=== PATIENT | female | born 1970 | race Caucasian/White ===

== ENCOUNTER 2018-11-15 22:20 | Emergency (ER) | payer MEDICAID ==
[2018-11-15] MEDS ORDERED: Sodium Chloride 0.9% 10 ML Syringe FLUSH PRN ×2 (22:40→23:03)
[2018-11-15 22:43] VITALS: BP 132/83
[2018-11-15] MEDS ORDERED: Ondansetron 4 MG/2 ML SDV IVPUSH ONE (23:02)
[2018-11-15] MEDS ORDERED: Ketorolac 30 MG/ML SDV IVPUSH ONE (23:02)
[2018-11-15] MEDS ORDERED: Sodium Chloride 0.9% 1,000 ML IV ONE (23:02)
--- NOTE | 2018-11-15 23:17 | EDM.PDOC ---
ED HPI GENERAL MEDICAL PROBLEM - General Chief Complaint: Abdominal Pain Stated Complaint: abdominal pain Time Seen by Provider: 11/15/18 22:59 Source of Information: Reports: Patient History Limitations: Reports: No Limitations - History of Present Illness INITIAL COMMENTS - FREE TEXT/NARRATIVE: Patient is a 48-year-old female who presents to the emergency department this evening with a complaint of abdominal pain. Patient states that the abdominal pain has been waxing and waning for 7 days and described as cramping. She feels nauseous and has had 6 or 7 episodes of vomiting in the past 24 hours. She has an extensive history of chronic abdominal pain, ileus, SMA DVT, lumbar surgery and previous narcotic pain medicine addiction. Patient was seen in this ER multiple times with the last episode November 2015. Patient denies fever, chest pain, shortness of breath, blood in vomitus, diarrhea, dysuria, vaginal discharge or bleeding, out of country travel, or family members with similar symptoms. Onset: Gradual Duration: Week(s): Location: Reports: Abdomen Quality: Reports: Ache Severity: Moderate Improves with: Reports: None Worsens with: Reports: None Associated Symptoms: Reports: Nausea/Vomiting. Denies: Chest Pain, Fever/Chills - Related Data Allergies Allergy/AdvReac Type Severity Reaction Status Date / Time metoclopramide HCl Allergy Rash Verified 11/15/18 22:25 [From Reglan] nitroglycerin Allergy Bleeding Verified 11/15/18 22:25 Home Meds: Home Meds Aspirin [Halfprin] 162 mg PO BID 01/01/15 [History] Dicyclomine HCl [Bentyl] 40 mg PO Q6HR PRN 01/01/15 [History] LORazepam [Ativan] 1 mg PO QID PRN 01/01/15 [History] Lidocaine 5% [Lidoderm 5%] 700 mg TOP DAILY PRN 01/01/15 [History] Linaclotide [Linzess] 290 mg PO DAILY 01/01/15 [History] Pantoprazole Sodium [Protonix] 20 mg PO DAILY 01/20/15 [History] Zolpidem [Ambien] 10 mg PO BEDTIME PRN 01/20/15 [History] busPIRone HCl [Buspirone HCl] 15 mg PO TID 01/20/15 [History] Hydrocort/Neomycin/Polymyxin B [Qmkqukfs-Xzvkmkkbl-ZW Otic Susp] 10 ml .XX TID # 1 bottle 11/15/18 [Rx] Past Medical History Cardiovascular History: Reports: Blood Clots/VTE/DVT, [place] Gastrointestinal History: Reports: Helicobacter Pylori, Other (See Below) Other Gastrointestinal History: chronic abdominal pain, cdiff Genitourinary History: Reports: Pyelonephritis Other Genitourinary History: current UTI Psychiatric History: Reports: Addiction, Anxiety - Infectious Disease History Infectious Disease History: Reports: C-Difficile - Past Surgical History GI Surgical History: Reports: Colonoscopy, Hernia, Abdominal Female Surgical History: Reports: Section ED ROS GENERAL - Review of Systems Review Of Systems: ROS reveals no pertinent complaints other than HPI. Constitutional: Reports: No Symptoms HEENT: Reports: No Symptoms Respiratory: Reports: No Symptoms Cardiovascular: Reports: No Symptoms Endocrine: Reports: No Symptoms GI/Abdominal: Reports: Abdominal Pain, Nausea, Vomiting : Reports: No Symptoms Musculoskeletal: Reports: No Symptoms Skin: Reports: No Symptoms Neurological: Reports: No Symptoms Psychiatric: Reports: No Symptoms Hematologic/Lymphatic: Reports: No Symptoms Immunologic: Reports: No Symptoms ED EXAM, GI/ABD - Physical Exam Exam: See Below Exam Limited By: No Limitations General Appearance: Alert, WD/WN, No Apparent Distress Ears: Normal External Exam, Other (Right canal edematous and TM not visualized. Left canal and TM without edema or erythema.) Throat/Mouth: Normal Inspection, Normal Oropharynx, No Airway Compromise Neck: Normal Inspection Respiratory/Chest: No Respiratory Distress, Lungs Clear, Normal Breath Sounds, No Accessory Muscle Use, Chest Non-Tender Cardiovascular: Regular Rate, Rhythm, No Murmur GI/Abdominal Exam: Normal Bowel Sounds, Soft, No Organomegaly, No Distention, No Abnormal Bruit, No Mass, Tender (Right lower quadrant). No: Distended, Guarding, Rigid, Rebound Back Exam: Normal Inspection. No: CVA Tenderness (L), CVA Tenderness (R) Extremities: Normal Inspection, No Pedal Edema Neurological: Alert, Oriented, Normal Cognition Psychiatric: Normal Affect, Normal Mood Skin Exam: Warm, Dry, Intact, Normal Color, No Rash Course - Vital Signs Last Recorded V/S: Last Vital Signs Temp 98.1 F 11/15/18 22:30 Pulse 91 11/15/18 22:30 Resp 20 11/15/18 22:30 BP 132/83 11/15/18 22:30 Pulse Ox 97 11/15/18 22:30 - Orders/Labs/Meds Orders: Active Orders 24 hr Category Date Time Status Peripheral IV Care [RC] . DIRECTED Care 11/15/18 23:03 Ordered Abdomen Pelvis w Cont [CT] Stat Exams 11/15/18 22:39 Ordered Sodium Chloride 0.9% [Normal Saline] 50 ml Med 11/15/18 23:45 Active IV ASDIRECTED Sodium Chloride 0.9% [Saline Flush] Med 11/15/18 22:40 Active 10 ml FLUSH Q8HR PRN Sodium Chloride 0.9% [Saline Flush] Med 11/15/18 23:03 Ordered 10 ml FLUSH Q8HR PRN Peripheral IV Insertion Adult [OM.PC] Routine Oth 11/15/18 23:03 Ordered Saline Lock Insert [OM.PC] Routine Oth 11/15/18 22:40 Ordered Medication Orders Sodium Chloride (Normal Saline) 50 mls @ 200 mls/min IV ASDIRECTED AKOSUA Last Admin: 11/16/18 00:04 Dose: 200 mls/min Sodium Chloride (Saline Flush) 10 ml FLUSH Q8HR PRN PRN Reason: keep vein open Sodium Chloride (Saline Flush) 10 ml FLUSH Q8HR PRN PRN Reason: keep vein open Labs: Laboratory Tests 11/15/18 11/15/18 11/15/18 Range/Units 22:50 22:50 22:50 WBC 8.92 (5.00-10.00) 10^3/uL RBC 4.58 (3.80-5.50) 10^6/uL Hgb 14.7 (12.0-16.0) g/dL Hct 41.2 (37.0-47.0) % MCV 90.0 D (82.0-92.0) fL MCH 32.1 H (27.0-31.0) pg MCHC 35.7 (32.0-36.0) g/dL RDW 12.4 (11.5-14.5) % Plt Count 248 (150-400) 10^3/uL MPV 10.3 (7.4-10.4) fL Immature Gran % (Auto) 0.0 (0.0-5.0) % Neut % (Auto) 58.3 (50.0-70.0) % Lymph % (Auto) 30.8 (20.0-40.0) % [place] % (Auto) 9.0 H (2.0-8.0) % Eos % (Auto) 1.1 (1.0-3.0) % Baso % (Auto) 0.8 (0.0-1.0) % Immature Gran # (Auto) 0.00 (0.00-0.50) 10^3/uL Neut # (Auto) 5.20 (2.50-7.00) 10^3/uL Lymph # (Auto) 2.75 (1.00-4.00) 10^3/uL [place] # (Auto) 0.80 (0.10-0.80) 10^3/uL Eos # (Auto) 0.10 (0.10-0.30) 10^3/uL Baso # (Auto) 0.07 (0.00-0.10) 10^3/uL Sodium 142 (136-145) mmol/L Potassium 3.2 L (3.3-5.3) mmol/L Chloride 105 (98-115) mmol/L Carbon Dioxide 24.0 (21.0-32.0) mmol/L Anion Gap 16.2 H (5-15) mmol/L BUN 17 (6-25) mg/dL Creatinine 1.03 (0.51-1.17) mg/dL Est Cr Clr Drug Dosing 63.54 mL/min Estimated GFR (MDRD) 57 mL/min Glucose 100 H (75 - 99) mg/dL Calcium 9.3 (8.7-10.3) mg/dL Total Bilirubin 0.3 (0.2-1.0) mg/dL AST 23 (15-37) U/L ALT 24 (12-78) U/L Alkaline Phosphatase 69 (46-116) IU/L Total Protein 7.5 (6.4-8.2) g/dL Albumin 3.99 (3.00-4.80) g/dL Lipase 129 (73-393) U/L Specimen Type Urinvoid Urine Color Yellow (YELLOW) Urine Appearance Clear (CLEAR) Urine pH 5.5 (5.0-9.0) Ur Specific [place] >= 1.030 (1.005-1.030) Urine Protein 30 H (NEGATIVE) mg/dL Urine Glucose (UA) Negative (NEGATIVE) mg/dL Urine Ketones 15 H (NEGATIVE) mg/dL Urine Occult Blood Negative (NEGATIVE) Urine Nitrite Negative (NEGATIVE) Urine Bilirubin Small H (NEGATIVE) Urine Urobilinogen 0.2 (0.2-1.0) E.U./dL Ur Leukocyte Esterase Negative (NEGATIVE) Urine RBC Not seen (0-5) /HPF Urine WBC 0-5 (0-5) /HPF Ur Epithelial Cells Occasional /LPF Other Crystals Occasional /HPF Urine Bacteria Few (NONE TO FEW) /HPF Urine Mucus Many H (NEGATIVE) /LPF Meds: Medications Generic Name Dose Route Start Last Admin Trade Name Freq PRN Reason Stop Dose Admin Sodium Chloride 50 mls @ 200 mls/min 11/15/18 23:45 11/16/18 00:04 Normal Saline IV 200 mls/min ASDIRECTED AKOSUA Administration Sodium Chloride 10 ml 11/15/18 22:40 Saline Flush FLUSH Q8HR PRN keep vein open Sodium Chloride 10 ml 11/15/18 23:03 Saline Flush FLUSH Q8HR PRN keep vein open Discontinued Medications Generic Name Dose Route Start Last Admin Trade Name Freq PRN Reason Stop Dose Admin Sodium Chloride 1,000 mls @ 999 mls/hr 11/15/18 23:02 11/15/18 23:05 Normal Saline IV 11/16/18 00:02 999 mls/hr .BOLUS ONE Administration Iopamidol 100 ml 11/15/18 23:33 11/16/18 00:04 Isovue-300 (61%) IVPUSH 11/15/18 23:34 75 ml ONETIME ONE Administration Ketorolac Tromethamine 30 mg 11/15/18 23:02 11/15/18 23:26 Toradol IVPUSH 11/15/18 23:03 30 mg ONETIME ONE Administration Ondansetron HCl 4 mg 11/15/18 23:02 11/15/18 23:22 Zofran IVPUSH 11/15/18 23:03 4 mg ONETIME ONE Administration - Radiology Interpretation Free Text/Narrative:: CT abdomen and pelvis with IV contrast shows no acute pathology. - Re-Assessments/Exams Free Text/Narrative Re-Assessment/Exam: 11/16/18 00:45 Patient afebrile, vital signs stable, discomfort relieved. Patient will follow- up with PCP. Prescription for Cortisporin otic given. Departure - Departure Time of Disposition: 00:46 Disposition: Home, Self-Care 01 Condition: Good Clinical Impression: Chronic abdominal pain Otitis externa Qualifiers: Otitis externa type: unspecified type Chronicity: acute Laterality: right Qualified Code(s): H60.501 - Unspecified acute noninfective otitis externa, right ear Abdominal pain Qualifiers: Abdominal location: generalized Qualified Code(s): R10.84 - Generalized abdominal pain - Discharge Information Prescriptions: Hydrocort/Neomycin/Polymyxin B [Pdqlngfn-Ftqupwedk-IS Otic Susp] 10 ml .XX TID # 1 bottle Instructions: Abdominal Pain, Adult, [id number], Nausea and Vomiting, Adult, [id number], Otitis Externa, [id number] Referrals: Otis Zhou, DRESS OPERATOR [Nurse Practitioner] - Forms: ED Department Discharge Additional Instructions: Follow up at [facility] in 2-3 days. Return to emergency department sooner if symptoms continue or worsen. Take medication as prescribed. - My Orders Last 24 Hours: My Active Orders 11/15/18 22:39 Abdomen Pelvis w Cont [CT] Stat 11/15/18 22:40 Sodium Chloride 0.9% [Saline Flush] 10 ml FLUSH Q8HR PRN Saline Lock Insert [OM.PC] Routine 11/15/18 23:03 Peripheral IV Care [RC] . DIRECTED Sodium Chloride 0.9% [Saline Flush] 10 ml FLUSH Q8HR PRN Peripheral IV Insertion Adult [OM.PC] Routine 11/15/18 23:45 Sodium Chloride 0.9% [Normal Saline] 50 ml IV ASDIRECTED - Assessment/Plan Last 24 Hours: My Active Orders 11/15/18 22:39 Abdomen Pelvis w Cont [CT] Stat 11/15/18 22:40 Sodium Chloride 0.9% [Saline Flush] 10 ml FLUSH Q8HR PRN Saline Lock Insert [OM.PC] Routine 11/15/18 23:03 Peripheral IV Care [RC] . DIRECTED Sodium Chloride 0.9% [Saline Flush] 10 ml FLUSH Q8HR PRN Peripheral IV Insertion Adult [OM.PC] Routine 07/01/19 23:45 Sodium Chloride 0.9% [Normal Saline] 50 ml IV ASDIRECTED Assessment:: Abdominal pain, otitis externa Plan: Follow-up with PCP
[2018-11-15 23:30] LABS: ANION GAP 16.2 mmol/L (5-15)
[2018-11-15] MEDS ORDERED: Iopamidol 612 MG/ML 100 ML Bottle IVPUSH ONE (23:33)
[2018-11-15] MEDS ORDERED: Sodium Chloride 0.9% 50 ML IV SCH (23:45)
--- NOTE | 2018-11-16 08:07 | CT ---
[id number] CT/CT Abdomen Pelvis W IV EXAM: CT Abdomen Pelvis W IV CLINICAL DATA: ABDOMINAL PAIN COMPARISON: CORRELATION IS MADE WITH THE EXAM OF 2014. FINDINGS: The gallbladder is moderately distended. The appendix appears normal. The uterus and ovaries appear involuted. There are atheromatous calcifications. There are surgical changes of the lumbar spine. The liver and spleen, adrenals, aorta, kidneys, and pancreas otherwise are unremarkable. There is no free air or free fluid. There is no bowel obstruction. The pelvis shows no mass or adenopathy. IMPRESSION: MILD GALLBLADDER DISTENTION. NO THICKENING OF GALLBLADDER WALL. NO OTHER ABNORMALITY. Baljinder Frost MD 11/16/18 0803 Thank you for allowing us to participate in the care of your patient.
== END 2018-11-16 01:00 | disposition home or self-care (01) ==
LOC: KA.ED 22:20
DX: R10.84 Generalized abdominal pain (principal); H60.501 Unspecified acute noninfective otitis externa, right ear; F41.9 Anxiety disorder, unspecified; Z79.82 Long term (current) use of aspirin; Z79.899 Other long term (current) drug therapy; Z88.8 Allergy status to other drugs, medicaments and biological substances
CPT/HCPCS: 36415; 74177; 80053; 81001; 83690; 85025; 96361; 96374; 96375; 99283; 99284-25; J1885; J2405; J7030; J7050; Q9967

== ENCOUNTER 2018-11-27 21:20 | Emergency (ER) | payer MEDICAID, SELFPAY ==
[2018-11-27 21:35] VITALS: BP 132/90; PULSE 84
[2018-11-27] MEDS ORDERED: Amoxicillin/Clavulanate K 875-125 MG Tab PO ONE (22:09)
--- NOTE | 2018-11-27 22:26 | EDM.PDOC ---
ED HPI GENERAL MEDICAL PROBLEM - General Chief Complaint: ENT Problem Stated Complaint: R ear pain Time Seen by Provider: 11/27/18 21:58 Source of Information: Reports: Patient History Limitations: Reports: No Limitations - History of Present Illness INITIAL COMMENTS - FREE TEXT/NARRATIVE: Patient presents with right ear pain. This has been present for two weeks and worsening the last couple days. She was in ER when it started, was diagnosed with "swimmers ear" and was given otic Abx drops which she has been taking. It seemed to help for a few days but now definitely getting worse. She hasn't had a measured fever but she did have chills yesterday. - Related Data Allergies Allergy/AdvReac Type Severity Reaction Status Date / Time Benzodiazepines Allergy Agitation Verified 11/27/18 21:49 metoclopramide HCl Allergy Rash Verified 11/27/18 21:49 [From Reglan] nitroglycerin Allergy Bleeding Verified 11/27/18 21:49 Home Meds: Home Meds Aspirin [Halfprin] 162 mg PO BID 01/01/15 [History] cloNIDine HCl [Catapres] 0.2 mg PO BID 11/27/18 [History] Past Medical History HEENT History: Reports: Other (See Below) Other HEENT History: Right ear infection which started treatment approx 2 weeks ago. 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 Dermatologic History: Reports: Eczema, Psoriasis, Other (See Below) Other Dermatologic History: States chronic psoriasis in bilat ears. Right more then left. - Infectious Disease History Infectious Disease History: Reports: C-Difficile - Past Surgical History HEENT Surgical History: Reports: Tonsillectomy GI Surgical History: Reports: Colonoscopy, Hernia, Abdominal Female Surgical History: Reports: Section Social & Family History - Tobacco Use Smoking Status *Q: Current Every Day Smoker Years of Tobacco use: 30 Packs/Tins Daily: 1 ED ROS ENT - Review of Systems Review Of Systems: See Below Constitutional: Reports: Chills. Denies: Fever, Malaise HEENT: Reports: Ear Pain. Denies: Eye Discharge, Throat Pain Respiratory: Denies: Shortness of Breath, Cough Cardiovascular: Denies: Chest Pain, Lightheadedness, Syncope Endocrine: Reports: No Symptoms GI/Abdominal: Denies: Abdominal Pain, Constipation, Diarrhea, Vomiting : Reports: No Symptoms Musculoskeletal: Reports: No Symptoms Skin: Reports: No Symptoms Neurological: Reports: No Symptoms Psychiatric: Reports: No Symptoms ED EXAM, ENT - Physical Exam Exam: See Below Exam Limited By: No Limitations General Appearance: Alert, WD/WN, No Apparent Distress Eye Exam: Bilateral Eye: EOMI, Normal Inspection, PERRL Ears: Auricular Erythema (right), Auricular Tenderness (and pre-auricular swelling and tenderness), Canal Swelling, Other (left ear all normal; right ear canal 75% narrowed from swelling, TM not visualized). No: Mastoid Swelling, Mastoid Tenderness, Canal Blood, Canal Discharge Nose: Normal Inspection, No Blood Mouth/Throat: Normal Inspection, Normal Gums, Normal Lips, Normal Oropharynx Head: Atraumatic, Normocephalic Neck: Tender Lateral (right lateral below ear) Respiratory/Chest: No Respiratory Distress, Lungs Clear, Normal Breath Sounds Cardiovascular: Regular Rate, Rhythm, No Murmur Neurological: Alert, Oriented, Normal Cognition, No Motor/Sensory Deficits Psychiatric: Normal Affect, Normal Mood Skin: Warm, Dry, Intact, Normal Color, No Rash Course - Vital Signs Last Recorded V/S: Last Vital Signs Temp 98.5 F 11/27/18 21:33 Pulse 84 11/27/18 21:33 Resp 18 11/27/18 21:33 BP 132/90 11/27/18 21:33 Pulse Ox 97 11/27/18 21:33 - Orders/Labs/Meds Meds: Medications Discontinued Medications Generic Name Dose Route Start Last Admin Trade Name Britany PRN Reason Stop Dose Admin Amoxicillin/Clavulanate Potassium 4 tab 11/27/18 22:09 Augmentin 875 Mg/125 Mg PO 11/27/18 22:10 ONETIME ONE - Re-Assessments/Exams Free Text/Narrative Re-Assessment/Exam: 11/27/18 22:36 Discussed findings and recommendations. Will continue the otic drops and start Augmentin. Will followup with PCP when she gets back to [place] in a few days. Patient discharged to home in stable condition. Departure - Departure Time of Disposition: 22:11 Disposition: Home, Self-Care 01 Condition: Good Clinical Impression: Cellulitis of right ear canal - Discharge Information Instructions: Cellulitis, Adult, [id number] Additional Instructions: 1. Drink 8 cups of water daily. 2. Take the Augmentin as directed. 3. You can take Diflucan if you get a yeast infection. 4. Follow up with your PCP if this doesn't completely resolve with treatment. 5. Recheck sooner with PCP or ER if worsening.
== END 2018-11-27 22:15 | disposition home or self-care (01) ==
LOC: KA.ED 21:20
DX: H60.11 Cellulitis of right external ear (principal); F17.210 Nicotine dependence, cigarettes, uncomplicated; Z79.82 Long term (current) use of aspirin; Z79.899 Other long term (current) drug therapy; Z88.8 Allergy status to other drugs, medicaments and biological substances
CPT/HCPCS: 99282; 99283; A9270

== ENCOUNTER 2019-01-26 13:03 | Emergency (ER) | payer MEDICAID ==
[2019-01-26 13:16] VITALS: PULSE 104
[2019-01-26] MEDS: Sodium Chloride 0.9% 10 ML Syringe FLUSH PRN (13:25)
[2019-01-26] MEDS: Sodium Chloride 0.9% 1,000 ML IV ONE (13:45)
--- NOTE | 2019-01-26 13:47 | EDM.PDOC ---
ED HPI GENERAL MEDICAL PROBLEM - General Chief Complaint: General Stated Complaint: INTESTINE ISSUES Time Seen by Provider: 01/26/19 13:39 Source of Information: Reports: Patient History Limitations: Reports: No Limitations - History of Present Illness INITIAL COMMENTS - FREE TEXT/NARRATIVE: Patient is a 48-year-old female who presents to the emergency department this afternoon with a complaint of abdominal pain and vomiting. Patient states that the abdominal pain has been waxing and waning for 7 days and described as cramping. She feels nauseous and has a few episodes of vomiting in the past 24 hours. She does have extensive history of chronic abdominal pain and narcotic pain medicine addiction and has been seen previously here in the emergency department. She states that she was seen recently in [place] and treated for UTI with cephalexin. Patient denies fever, chest pain, shortness of breath, blood in vomitus or stool, dysuria, vaginal discharge, out of country travel, or others with similar symptoms Onset: Gradual Duration: Week(s): Location: Reports: Abdomen Quality: Reports: Ache Severity: Mild Improves with: Reports: None Worsens with: Reports: None Context: Denies: Trauma Associated Symptoms: Reports: Nausea/Vomiting. Denies: Chest Pain, Cough, Diaphoresis, Fever/Chills, Shortness of Breath Abdomen Pain Score (Numeric/FACES): 10 - Related Data Allergies Allergy/AdvReac Type Severity Reaction Status Date / Time Benzodiazepines Allergy Agitation Verified 01/26/19 13:19 haloperidol [From Haldol] Allergy Syncope Verified 01/26/19 13:19 metoclopramide HCl Allergy Rash Verified 01/26/19 13:19 [From Reglan] nitroglycerin Allergy Bleeding Verified 01/26/19 13:19 Home Meds: Home Meds cloNIDine HCl [Catapres] 0.2 mg PO BID 11/27/18 [History] Aspirin 162 mg PO BID 01/26/19 [History] Past Medical History HEENT History: Reports: Other (See Below) Other HEENT History: Right ear infection which started treatment approx 2 weeks ago. 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 Dermatologic History: Reports: Eczema, Psoriasis, Other (See Below) Other Dermatologic History: States chronic psoriasis in bilat ears. Right more then left. - Infectious Disease History Infectious Disease History: Reports: C-Difficile - Past Surgical History HEENT Surgical History: Reports: Tonsillectomy GI Surgical History: Reports: Colonoscopy, Hernia, Abdominal Female Surgical History: Reports: Section Social & Family History - Tobacco Use Smoking Status *Q: Former Smoker Used Tobacco, but Quit: Yes Month/Year Tobacco Last Used: quit 4 months ago Second Hand Smoke Exposure: No - Caffeine Use Caffeine Use: Reports: Coffee - Recreational Drug Use Recreational Drug Use: Yes Recreational Drug Type: Reports: Marijuana/Hashish ED ROS GENERAL - Review of Systems Review Of Systems: ROS reveals no pertinent complaints other than HPI. Constitutional: Reports: No Symptoms HEENT: Reports: No Symptoms Respiratory: Reports: No Symptoms Cardiovascular: Reports: No Symptoms Endocrine: Reports: No Symptoms GI/Abdominal: Reports: Abdominal Pain, Nausea, Vomiting : Reports: No Symptoms Musculoskeletal: Reports: No Symptoms Skin: Reports: No Symptoms Neurological: Reports: No Symptoms Psychiatric: Reports: No Symptoms Hematologic/Lymphatic: Reports: No Symptoms Immunologic: Reports: No Symptoms ED EXAM, GENERAL - Physical Exam Exam: See Below Exam Limited By: No Limitations General Appearance: Alert, WD/WN, No Apparent Distress Nose: Normal Inspection Throat/Mouth: Normal Inspection, Normal Oropharynx, No Airway Compromise Head: Atraumatic, Normocephalic Neck: Normal Inspection Respiratory/Chest: No Respiratory Distress, Lungs Clear, Normal Breath Sounds, No Accessory Muscle Use, Chest Non-Tender Cardiovascular: Regular Rate, Rhythm, No Murmur GI/Abdominal: Normal Bowel Sounds, Soft, No Organomegaly, No Distention, No Abnormal Bruit, No Mass, Tender (Suprapubic) Back Exam: Normal Inspection. No: CVA Tenderness (L), CVA Tenderness (R) Extremities: Normal Inspection, No Pedal Edema Neurological: Alert, Oriented, Normal Cognition Psychiatric: Normal Affect, Normal Mood Skin Exam: Warm, Dry, Intact, Normal Color, No Rash Lymphatic: No Adenopathy Course - Vital Signs Last Recorded V/S: Last Vital Signs Temp 96.9 F 01/26/19 13:11 Pulse 104 H 01/26/19 13:11 Resp 20 01/26/19 13:11 BP 155/79 H 01/26/19 14:20 Pulse Ox 96 01/26/19 13:11 - Orders/Labs/Meds Orders: Active Orders 24 hr Category Date Time Status Peripheral IV Care [RC] . DIRECTED Care 01/26/19 13:40 Ordered Sodium Chloride 0.9% @ 999 MLS/HR (1000ml) Med 01/26/19 13:40 Ordered Sodium Chloride 0.9% [Normal Saline] 1,000 ml IV .BOLUS Sodium Chloride 0.9% [Saline Flush] Med 01/26/19 13:40 Ordered 10 ml FLUSH Q8HR PRN Peripheral IV Insertion Adult [OM.PC] Routine Oth 01/26/19 13:40 Ordered Medication Orders Sodium Chloride (Normal Saline) 1,000 mls @ 999 mls/hr IV .BOLUS ONE Stop: 01/26/19 14:40 Last Admin: 01/26/19 13:45 Dose: 999 mls/hr Sodium Chloride (Saline Flush) 10 ml FLUSH Q8HR PRN PRN Reason: keep vein open Last Admin: 01/26/19 13:25 Dose: 10 ml Labs: Laboratory Tests 01/26/19 01/26/19 01/26/19 Range/Units 13:30 13:30 13:55 WBC 9.57 (5.00-10.00) 10^3/uL RBC 4.37 (3.80-5.50) 10^6/uL Hgb 14.1 (12.0-16.0) g/dL Hct 40.0 (37.0-47.0) % MCV 91.5 (82.0-92.0) fL MCH 32.3 H (27.0-31.0) pg MCHC 35.3 (32.0-36.0) g/dL RDW 13.7 (11.5-14.5) % Plt Count 391 D (150-400) 10^3/uL MPV 9.6 (7.4-10.4) fL Immature Gran % (Auto) 0.1 (0.0-5.0) % Neut % (Auto) 62.9 (50.0-70.0) % Lymph % (Auto) 25.2 (20.0-40.0) % [place] % (Auto) 9.5 H (2.0-8.0) % Eos % (Auto) 1.5 (1.0-3.0) % Baso % (Auto) 0.8 (0.0-1.0) % Immature Gran # (Auto) 0.01 (0.00-0.50) 10^3/uL Neut # (Auto) 6.02 (2.50-7.00) 10^3/uL Lymph # (Auto) 2.41 (1.00-4.00) 10^3/uL [place] # (Auto) 0.91 H (0.10-0.80) 10^3/uL Eos # (Auto) 0.14 (0.10-0.30) 10^3/uL Baso # (Auto) 0.08 (0.00-0.10) 10^3/uL Sodium 140 (136-145) mmol/L Potassium 3.7 (3.3-5.3) mmol/L Chloride 100 (98-115) mmol/L Carbon Dioxide 27.4 (21.0-32.0) mmol/L Anion Gap 16.3 H (5-15) mmol/L BUN 12 (6-25) mg/dL Creatinine 0.91 (0.51-1.17) mg/dL Est Cr Clr Drug Dosing 71.92 mL/min Estimated GFR (MDRD) > 60 mL/min Glucose 116 H (75 - 99) mg/dL Calcium 9.5 (8.7-10.3) mg/dL Total Bilirubin 0.4 (0.2-1.0) mg/dL AST 24 (15-37) U/L ALT 39 (12-78) U/L Alkaline Phosphatase 67 (46-116) IU/L Total Protein 7.1 (6.4-8.2) g/dL Albumin 3.92 (3.00-4.80) g/dL Lipase 117 (73-393) U/L Specimen Type . Urine Color Yellow (YELLOW) Urine Appearance Clear (CLEAR) Urine pH 5.5 (5.0-9.0) Ur Specific [place] >= 1.030 (1.005-1.030) Urine Protein 100 H (NEGATIVE) mg/dL Urine Glucose (UA) Negative (NEGATIVE) mg/dL Urine Ketones Negative (NEGATIVE) mg/dL Urine Occult Blood Negative (NEGATIVE) Urine Nitrite Negative (NEGATIVE) Urine Bilirubin Small H (NEGATIVE) Urine Urobilinogen 0.2 (0.2-1.0) E.U./dL Ur Leukocyte Esterase Negative (NEGATIVE) Urine RBC 0-5 (0-5) /HPF Urine WBC 5-10 H (0-5) /HPF Ur Epithelial Cells Many H /LPF Urine Bacteria Occasional (NONE TO FEW) /HPF Urine Mucus Many H (NEGATIVE) /LPF Meds: Medications Generic Name Dose Route Start Last Admin Trade Name Freq PRN Reason Stop Dose Admin Sodium Chloride 1,000 mls @ 999 mls/hr 01/26/19 13:40 01/26/19 13:45 Normal Saline IV 01/26/19 14:40 999 mls/hr .BOLUS ONE Administration Sodium Chloride 10 ml 01/26/19 13:40 01/26/19 13:25 Saline Flush FLUSH 10 ml Q8HR PRN Administration keep vein open Discontinued Medications Generic Name Dose Route Start Last Admin Trade Name Freq PRN Reason Stop Dose Admin Ketorolac Tromethamine 30 mg 01/26/19 14:05 01/26/19 14:10 Toradol IVPUSH 01/26/19 14:06 30 mg ONETIME ONE Administration - Re-Assessments/Exams Free Text/Narrative Re-Assessment/Exam: 01/26/19 14:31 Patient afebrile, vital signs stable, appears nontoxic, requesting narcotics. Patient will follow-up with PCP Departure - Departure Time of Disposition: 14:32 Disposition: Home, Self-Care 01 Condition: Good Clinical Impression: Chronic pain syndrome, Chronic generalized abdominal pain, Drug-seeking behavior - Discharge Information Instructions: Abdominal Pain, Adult, [id number], Chronic Pain, Adult Referrals: Jayy Dickerson MD [Primary Care Provider] - Forms: ED Department Discharge Additional Instructions: Follow-up at [facility] in 1-2 days. Return to emergency department sooner if symptoms continue or worsen. - My Orders Last 24 Hours: My Active Orders 01/26/19 13:40 Peripheral IV Care [RC] . DIRECTED Sodium Chloride 0.9% @ 999 MLS/HR (1000ml) Sodium Chloride 0.9% [Normal Saline] 1,000 ml IV .BOLUS Sodium Chloride 0.9% [Saline Flush] 10 ml FLUSH Q8HR PRN Peripheral IV Insertion Adult [OM.PC] Routine - Assessment/Plan Last 24 Hours: My Active Orders 01/26/19 13:40 Peripheral IV Care [RC] . DIRECTED Sodium Chloride 0.9% @ 999 MLS/HR (1000ml) Sodium Chloride 0.9% [Normal Saline] 1,000 ml IV .BOLUS Sodium Chloride 0.9% [Saline Flush] 10 ml FLUSH Q8HR PRN Peripheral IV Insertion Adult [OM.PC] Routine Assessment:: Chronic abdominal pain Plan: Follow-up with PCP
[2019-01-26 13:56] LABS: ANION GAP 16.3 mmol/L (5-15); CHLORIDE,CL 100 mmol/L (98-115); SODIUM,NA 140 mmol/L (136-145)
[2019-01-26] MEDS: Ketorolac 30 MG/ML SDV IVPUSH ONE (14:10)
[2019-01-26 14:20] VITALS: BP 155/79
== END 2019-01-26 14:40 | disposition home or self-care (01) ==
LOC: KA.ED 13:03
DX: R10.84 Generalized abdominal pain (principal); G89.29 Other chronic pain; I25.2 Old myocardial infarction; Z76.5 Malingerer [conscious simulation]; Z79.82 Long term (current) use of aspirin; Z86.718 Personal history of other venous thrombosis and embolism; Z87.891 Personal history of nicotine dependence; Z88.8 Allergy status to other drugs, medicaments and biological substances
CPT/HCPCS: 80053; 81001; 83690; 85025; 96361; 96374; 99283; 99284-25; J1885; J7030

== ENCOUNTER 2019-08-29 22:40 | Emergency (ER) | payer MEDICAID ==
[2019-08-29] MEDS ORDERED: Ketorolac 30 MG/ML SDV IVPUSH ONE (23:09)
[2019-08-29] MEDS ORDERED: Sodium Chloride 0.9% 10 ML Syringe FLUSH PRN (23:09)
--- NOTE | 2019-08-29 23:18 | EDM.PDOC ---
ED HPI GENERAL MEDICAL PROBLEM - General Chief Complaint: Respiratory Problem Stated Complaint: left lung pain Time Seen by Provider: 08/29/19 23:07 Source of Information: Reports: Patient History Limitations: Reports: No Limitations - History of Present Illness INITIAL COMMENTS - FREE TEXT/NARRATIVE: Patient is a 49-year-old female who presents to the emergency department this evening via private vehicle for complaint of left-sided chest pain and shortness of breath. Patient states discomfort in the left axilla began 7 days ago. Patient states the symptoms have not resolved. Became concerned and decided to present to the ER. Patient states 60 days ago, mid June she was diagnosed with covid-19. This occurred in [place], [place]. Patient states took 5 days for the results, she had mild symptoms initially and symptoms resolved spontaneously. Patient was never on any medication. Patient does have underlying asthma. Patient believes that she acquired the virus from a 5G radial [place]. Patient states that she's been in the local area for the past 13 days. Patient denies cough, fever, nausea, vomiting, diarrhea, other family members with similar symptoms, headache, or any trauma to that area. Patient adamantly refused procedure to recheck for Covid 19 or influenza. Patient states she's not going through that again. Onset: Gradual Duration: Week(s): Location: Reports: Chest Quality: Reports: Ache, Stabbing Severity: Moderate Improves with: Reports: None Worsens with: Reports: Breathing Associated Symptoms: Reports: Shortness of Breath. Denies: Cough, cough w sputum, Diaphoresis, Fever/Chills, Nausea/Vomiting - Related Data Allergies Allergy/AdvReac Type Severity Reaction Status Date / Time Benzodiazepines Allergy Agitation Verified 01/26/19 13:19 haloperidol [From Haldol] Allergy Syncope Verified 01/26/19 13:19 metoclopramide HCl Allergy Rash Verified 01/26/19 13:19 [From Reglan] nitroglycerin Allergy Bleeding Verified 01/26/19 13:19 Home Meds: Home Meds cloNIDine HCl [Catapres] 0.2 mg PO BID 11/27/18 [History] Aspirin 162 mg PO BID 01/26/19 [History] Past Medical History HEENT History: Reports: Other (See Below) Other HEENT History: Right ear infection which started treatment approx 2 weeks ago. 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 Dermatologic History: Reports: Eczema, Psoriasis, Other (See Below) Other Dermatologic History: States chronic psoriasis in bilat ears. Right more then left. - Infectious Disease History Infectious Disease History: Reports: C-Difficile - Past Surgical History HEENT Surgical History: Reports: Tonsillectomy GI Surgical History: Reports: Colonoscopy, Hernia, Abdominal Female Surgical History: Reports: Section Social & Family History - Caffeine Use Caffeine Use: Reports: Coffee ED ROS GENERAL - Review of Systems Review Of Systems: Comprehensive ROS is negative, except as noted in HPI. Constitutional: Reports: No Symptoms HEENT: Reports: No Symptoms Respiratory: Reports: Shortness of Breath, Pleuritic Chest Pain Cardiovascular: Reports: No Symptoms Endocrine: Reports: No Symptoms GI/Abdominal: Reports: No Symptoms : Reports: No Symptoms Musculoskeletal: Reports: No Symptoms Skin: Reports: No Symptoms Neurological: Reports: No Symptoms Psychiatric: Reports: No Symptoms Hematologic/Lymphatic: Reports: No Symptoms Immunologic: Reports: No Symptoms ED EXAM, GENERAL - Physical Exam Exam: See Below Exam Limited By: No Limitations General Appearance: Alert, WD/WN, Mild Distress Eye Exam: Bilateral Eye: Normal Inspection Nose: Normal Inspection, Normal Mucosa, No Blood Throat/Mouth: Normal Inspection, Normal Oropharynx, No Airway Compromise Head: Atraumatic, Normocephalic Neck: Normal Inspection, Supple, Non-Tender. No: Lymphadenopathy (L), Lymphadenopathy (R) Respiratory/Chest: No Respiratory Distress, Lungs Clear, Normal Breath Sounds, No Accessory Muscle Use. No: Chest Non-Tender, Pleural Rub, Accessory Muscle Use Cardiovascular: Regular Rate, Rhythm, No Murmur GI/Abdominal: Normal Bowel Sounds, Soft, Non-Tender, No Organomegaly, No Distention, No Abnormal Bruit, No Mass Back Exam: Normal Inspection. No: CVA Tenderness (L), CVA Tenderness (R) Extremities: Normal Inspection, No Pedal Edema Neurological: Alert, Oriented, Normal Cognition Psychiatric: Anxious Skin Exam: Warm, Dry, Intact, Normal Color, No Rash Lymphatic: No Adenopathy EKG INTERPRETATION EKG Date: 08/29/19 Time: 23:00 Rhythm: NSR Rate (Beats/Min): 62 [place]: Normal P-Wave: Present QRS: Normal ST-T: Normal QT: Normal Comparison: No Change Course - Vital Signs Last Recorded V/S: Last Vital Signs Temp 98.0 F 08/29/19 22:45 Pulse 58 L 08/29/19 23:51 Resp 18 08/29/19 23:51 BP 128/69 08/29/19 23:51 Pulse Ox 99 08/29/19 23:51 - Orders/Labs/Meds Orders: Active Orders 24 hr Category Date Time Status EKG Documentation Completion [RC] ASDIRECTED Care 08/29/19 23:08 Ordered Peripheral IV Care [RC] . DIRECTED Care 08/29/19 23:09 Ordered Chest 2V [CR] Stat Exams 08/29/19 23:08 Stop Req Ribs 2V w Chest Lt [CR] Stat Exams 08/29/19 23:28 Ordered Sodium Chloride 0.9% [Saline Flush] Med 08/29/19 23:09 Ordered 10 ml FLUSH Q8HR PRN Peripheral IV Insertion Adult [OM.PC] Routine Oth 08/29/19 23:09 Ordered EKG 12 Lead [EK] Routine Ther 08/29/19 23:08 Ordered Medication Orders Sodium Chloride (Saline Flush) 10 ml FLUSH Q8HR PRN PRN Reason: keep vein open Labs: Laboratory Tests 08/29/19 08/29/19 Range/Units 23:30 23:30 WBC 7.75 (5.00-10.00) 10^3/uL RBC 3.74 L (3.80-5.50) 10^6/uL Hgb 12.2 D (12.0-16.0) g/dL Hct 35.4 L (37.0-47.0) % MCV 94.7 H D (82.0-92.0) fL MCH 32.6 H (27.0-31.0) pg MCHC 34.5 (32.0-36.0) g/dL RDW 13.5 (11.5-14.5) % Plt Count 220 D (150-400) 10^3/uL MPV 10.4 (7.4-10.4) fL Immature Gran % (Auto) 0.1 (0.0-5.0) % Neut % (Auto) 47.7 L (50.0-70.0) % Lymph % (Auto) 41.3 H (20.0-40.0) % [place] % (Auto) 6.5 (2.0-8.0) % Eos % (Auto) 3.4 H (1.0-3.0) % Baso % (Auto) 1.0 (0.0-1.0) % Immature Gran # (Auto) 0.01 (0.00-0.50) 10^3/uL Neut # (Auto) 3.70 (2.50-7.00) 10^3/uL Lymph # (Auto) 3.20 (1.00-4.00) 10^3/uL [place] # (Auto) 0.50 (0.10-0.80) 10^3/uL Eos # (Auto) 0.26 (0.10-0.30) 10^3/uL Baso # (Auto) 0.08 (0.00-0.10) 10^3/uL Sodium 141 (136-145) mmol/L Potassium 3.9 (3.3-5.3) mmol/L Chloride 106 (98-115) mmol/L Carbon Dioxide 26.3 (21.0-32.0) mmol/L Anion Gap 12.6 (5-15) mmol/L BUN 10 (6-25) mg/dL Creatinine 0.94 (0.51-1.17) mg/dL Est Cr Clr Drug Dosing 68.85 mL/min Estimated GFR (MDRD) > 60 mL/min Glucose 97 (75 - 99) mg/dL Calcium 9.2 (8.7-10.3) mg/dL Total Bilirubin 0.1 L (0.2-1.0) mg/dL AST 19 (15-37) U/L ALT 28 (12-78) U/L Alkaline Phosphatase 77 (46-116) IU/L Total Protein 6.5 (6.4-8.2) g/dL Albumin 3.60 (3.00-4.80) g/dL Meds: Medications Generic Name Dose Route Start Last Admin Trade Name Jesusq PRN Reason Stop Dose Admin Sodium Chloride 10 ml 08/29/19 23:09 Saline Flush FLUSH Q8HR PRN keep vein open Discontinued Medications Generic Name Dose Route Start Last Admin Trade Name Britany PRN Reason Stop Dose Admin Ketorolac Tromethamine 30 mg 08/29/19 23:09 08/29/19 23:35 Toradol IVPUSH 08/29/19 23:10 30 mg ONETIME ONE Administration - Radiology Interpretation Free Text/Narrative:: Chest x-ray shows no acute cardiopulmonary process - Re-Assessments/Exams Free Text/Narrative Re-Assessment/Exam: 08/30/19 00:11 Patient afebrile, vital signs stable, pain controlled. Patient will follow-up with PCP Departure - Departure Time of Disposition: 00:11 Disposition: Home, Self-Care 01 Condition: Good Clinical Impression: Costochondritis - Discharge Information Instructions: Costochondritis, Chest Wall Pain, [id number] Forms: ED Department Discharge Additional Instructions: Follow-up with PCP. Return to emergency department sooner if symptoms continue or worsen. Sepsis Event Note - Focused Exam Vital Signs: Vital Signs Temp Pulse Resp BP Pulse Ox 08/29/19 23:51 58 L 18 128/69 99 08/29/19 22:45 98.0 F 70 20 140/36 L 96 Date Exam was Performed: 08/30/19 Time Exam was Performed: 00:10 - My Orders Last 24 Hours: My Active Orders 08/29/19 23:08 EKG Documentation Completion [RC] ASDIRECTED Chest 2V [CR] Stat EKG 12 Lead [EK] Routine 08/29/19 23:09 Peripheral IV Care [RC] . DIRECTED Sodium Chloride 0.9% [Saline Flush] 10 ml FLUSH Q8HR PRN Peripheral IV Insertion Adult [OM.PC] Routine 08/29/19 23:28 Ribs 2V w Chest Lt [CR] Stat - Assessment/Plan Last 24 Hours: My Active Orders 08/29/19 23:08 EKG Documentation Completion [RC] ASDIRECTED Chest 2V [CR] Stat EKG 12 Lead [EK] Routine 08/29/19 23:09 Peripheral IV Care [RC] . DIRECTED Sodium Chloride 0.9% [Saline Flush] 10 ml FLUSH Q8HR PRN Peripheral IV Insertion Adult [OM.PC] Routine 08/29/19 23:28 Ribs 2V w Chest Lt [CR] Stat Assessment:: Costochondritis Plan: Follow-up with PCP
[2019-08-29 23:53] VITALS: BP 128/69; PULSE 58
[2019-08-30 00:06] LABS: ANION GAP 12.6 mmol/L (5-15); CHLORIDE,CL 106 mmol/L (98-115); SODIUM,NA 141 mmol/L (136-145)
--- NOTE | 2019-08-30 08:27 | CR ---
[id number] RAD/RAD Ribs Left W PA Chest EXAM: RAD Ribs Left W PA Chest INDICATION: LEFT LUNG PAIN COMPARISON: None. DISCUSSION: Cardiomediastinal silhouette is normal in size and contour. No infiltrate, effusion, pneumothorax, or edema. No radiographic evidence of acute rib fractures. IMPRESSION: No significant cardiopulmonary abnormality. No radiographic evidence of acute rib fractures. Junaid Allison DO 08/30/19 0826 Thank you for allowing us to participate in the care of your patient.
== END 2019-08-30 00:15 | disposition home or self-care (01) ==
LOC: KA.ED 22:40
DX: M94.0 Chondrocostal junction syndrome [Tietze] (principal); I25.2 Old myocardial infarction; Z86.718 Personal history of other venous thrombosis and embolism; Z88.8 Allergy status to other drugs, medicaments and biological substances; Z79.82 Long term (current) use of aspirin
CPT/HCPCS: 36415; 71101-LT; 80053; 85025; 93005; 96374; 99284; 99285-25; J1885

== ENCOUNTER 2020-08-12 03:25 | Emergency (ER) | payer MEDICAID ==
[2020-08-12] MEDS: Aspirin 81 MG Tab.Chew PO ONE (03:35)
[2020-08-12] MEDS: LORazepam 2 MG/ML SDV IVPUSH ONE (04:05)
--- NOTE | 2020-08-12 04:30 | EDM.PDOC ---
ED HPI GENERAL MEDICAL PROBLEM - General Chief Complaint: General Stated Complaint: chest pain Time Seen by Provider: 08/12/20 03:58 Source of Information: Reports: Patient History Limitations: Reports: Other (She is extremely agitated and cannot control her constant writhing and squirming on the exam table) - History of Present Illness INITIAL COMMENTS - FREE TEXT/NARRATIVE: Patient presents with pain all over. She appears to be trying to crawl out of her body. She says it is because she is in so much pain. She dry heaves occasionally. She moans and cries at times. She says she has tried 3 hot showers tonight but didn't help. She is familiar with Cannabinoid Hyperemesis Syndrome and is adamant she doesn't have it. She has used marijuana recently. She says she has had two heart attacks and is having chest pain. We finally got blood and IV but cannot get a good EKG due to constant, intense movements. Chest Pain Score (Numeric/FACES): 8 - Related Data Allergies Allergy/AdvReac Type Severity Reaction Status Date / Time amoxicillin Allergy Rash Verified 08/12/20 06:16 Benzodiazepines Allergy Agitation Verified 08/12/20 06:16 haloperidol [From Haldol] Allergy Syncope Verified 08/12/20 06:16 metoclopramide HCl Allergy Rash Verified 08/12/20 06:16 [From Reglan] nitroglycerin Allergy Bleeding Verified 08/12/20 06:16 Home Meds: Home Meds cloNIDine HCL [Catapres] 0.2 mg PO BID 11/27/18 [History] Aspirin 162 mg PO BID 01/26/19 [History] Past Medical History HEENT History: Reports: Other (See Below) Other HEENT History: Right ear infection which started treatment approx 2 weeks ago. Cardiovascular History: Reports: Blood Clots/VTE/DVT, CT Respiratory History: Reports: Asthma, Other (See Below) Other Respiratory History: COVID19 dx Jul 01, 2019. 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 Dermatologic History: Reports: Eczema, Psoriasis, Other (See Below) Other Dermatologic History: States chronic psoriasis in bilat ears. Right more then left. - Infectious Disease History Infectious Disease History: Reports: C-Difficile - Past Surgical History HEENT Surgical History: Reports: Tonsillectomy GI Surgical History: Reports: Colonoscopy, Hernia, Abdominal Female Surgical History: Reports: Section Social & Family History - Caffeine Use Caffeine Use: Reports: Coffee ED ROS GENERAL - Review of Systems Review Of Systems: See Below Constitutional: Reports: Malaise. Denies: Fever Respiratory: Reports: Shortness of Breath Cardiovascular: Reports: Chest Pain. Denies: Syncope GI/Abdominal: Reports: Abdominal Pain, Vomiting (and dry heaving) Musculoskeletal: Reports: Other (pain all over) Neurological: Denies: Syncope, Trouble Speaking Psychiatric: Reports: Agitation ED EXAM, GENERAL - Physical Exam Exam: See Below Exam Limited By: Combative/Threatening (along with constant writhing and squirming on the table) General Appearance: Alert, WD/WN Eye Exam: Bilateral Eye: EOMI, Normal Inspection, PERRL Ears: Normal External Exam, Hearing Grossly Normal Nose: Normal Inspection, No Blood Throat/Mouth: Normal Inspection, Normal Voice, No Airway Compromise Head: Atraumatic, Normocephalic Neck: Normal Inspection, Full Range of Motion Respiratory/Chest: No Respiratory Distress, Lungs Clear, Normal Breath Sounds Cardiovascular: Tachycardia (regular) Extremities: Normal Inspection, Normal Range of Motion Neurological: Alert, No Motor/Sensory Deficits Psychiatric: Other (agitated, aggressive and threatening) Skin Exam: Warm, Intact, Normal Color, No Rash, Diaphoretic (mild) Course - Vital Signs Last Recorded V/S: Last Vital Signs Temp 96.6 F L 08/12/20 03:34 Pulse 119 H 08/12/20 04:31 Resp 30 H 08/12/20 04:31 BP 163/139 H 08/12/20 04:31 Pulse Ox 97 08/12/20 04:31 - Orders/Labs/Meds Orders: Active Orders 24 hr Category Date Time Status EKG Documentation Completion [RC] ASDIRECTED Care 08/12/20 04:01 Ordered EKG 12 Lead [EK] Stat Ther 08/12/20 04:01 Ordered Labs: Laboratory Tests 08/12/20 08/12/20 08/12/20 Range/Units 03:50 03:50 03:55 WBC 11.44 H (5.00-10.00) 10^3/uL RBC 4.82 (3.80-5.50) 10^6/uL Hgb 15.1 D (12.0-16.0) g/dL Hct 43.8 (37.0-47.0) % MCV 90.9 D (82.0-92.0) fL MCH 31.3 H (27.0-31.0) pg MCHC 34.5 (32.0-36.0) g/dL RDW 13.9 (11.5-14.5) % Plt Count 305 D (150-400) 10^3/uL MPV 10.4 (7.4-10.4) fL Immature Gran % (Auto) 0.2 (0.0-5.0) % Neut % (Auto) 53.7 (50.0-70.0) % Lymph % (Auto) 34.1 (20.0-40.0) % [place] % (Auto) 7.5 (2.0-8.0) % Eos % (Auto) 3.6 H (1.0-3.0) % Baso % (Auto) 0.9 (0.0-1.0) % Neut # (Auto) 6.15 (2.50-7.00) 10^3/uL Lymph # (Auto) 3.90 (1.00-4.00) 10^3/uL [place] # (Auto) 0.86 H (0.10-0.80) 10^3/uL Eos # (Auto) 0.41 H (0.10-0.30) 10^3/uL Baso # (Auto) 0.10 (0.00-0.10) 10^3/uL Immature Gran # (Auto) 0.02 (0.00-0.50) 10^3/uL Sodium 144 (136-145) mmol/L Potassium 4.0 (3.5-5.1) mmol/L Chloride 104 (98-107) mmol/L Carbon Dioxide 24.5 (21.0-32.0) mmol/L Anion Gap 19.5 H (5-15) mmol/L BUN 19 H (7-18) mg/dL Creatinine 0.92 (0.51-1.17) mg/dL Est Cr Clr Drug Dosing TNP Estimated GFR (MDRD) > 60 mL/min Glucose 116 (70-140) mg/dL Calcium 9.8 (8.7-10.3) mg/dL Troponin I 0.272 H* (0.000-0.056) ng/mL Specimen Type Urinvoid Urine Color Yellow (YELLOW) Urine Appearance Slightly cloudy H (CLEAR) Urine pH 5.5 (5.0-9.0) Ur Specific [place] >= 1.030 (1.005-1.030) Urine Protein Negative (NEGATIVE) mg/dL Urine Glucose (UA) Negative (NEGATIVE) mg/dL Urine Ketones Negative (NEGATIVE) mg/dL Urine Occult Blood Negative (NEGATIVE) Urine Nitrite Negative (NEGATIVE) Urine Bilirubin Negative (NEGATIVE) Urine Urobilinogen 0.2 (0.2-1.0) E.U./dL Ur Leukocyte Esterase Negative (NEGATIVE) Urine RBC 0-5 (0-5) /HPF Urine WBC 0-5 (0-5) /HPF Ur Epithelial Cells Moderate H /LPF Amorphous Sediment Moderate H (0/HPF) /HPF Urine Bacteria Moderate H (NONE TO FEW) /HPF Urine Opiates Screen (NEGATIVE) Ur Oxycodone Screen (NEGATIVE) Urine Methadone Screen (NEGATIVE) Ur Propoxyphene Screen (NEGATIVE) Ur Barbiturates Screen (NEGATIVE) Ur Tricyclics Screen (NEGATIVE) Ur Phencyclidine Scrn (NEGATIVE) Ur Amphetamine Screen (NEGATIVE) U Methamphetamines Scrn (NEGATIVE) U Benzodiazepines Scrn (NEGATIVE) U Cocaine Metab Screen (NEGATIVE) U Marijuana (THC) Screen (NEGATIVE) 08/12/20 Range/Units 03:59 WBC (5.00-10.00) 10^3/uL RBC (3.80-5.50) 10^6/uL Hgb (12.0-16.0) g/dL Hct (37.0-47.0) % MCV (82.0-92.0) fL MCH (27.0-31.0) pg MCHC (32.0-36.0) g/dL RDW (11.5-14.5) % Plt Count (150-400) 10^3/uL MPV (7.4-10.4) fL Immature Gran % (Auto) (0.0-5.0) % Neut % (Auto) (50.0-70.0) % Lymph % (Auto) (20.0-40.0) % [place] % (Auto) (2.0-8.0) % Eos % (Auto) (1.0-3.0) % Baso % (Auto) (0.0-1.0) % Neut # (Auto) (2.50-7.00) 10^3/uL Lymph # (Auto) (1.00-4.00) 10^3/uL [place] # (Auto) (0.10-0.80) 10^3/uL Eos # (Auto) (0.10-0.30) 10^3/uL Baso # (Auto) (0.00-0.10) 10^3/uL Immature Gran # (Auto) (0.00-0.50) 10^3/uL Sodium (136-145) mmol/L Potassium (3.5-5.1) mmol/L Chloride (98-107) mmol/L Carbon Dioxide (21.0-32.0) mmol/L Anion Gap (5-15) mmol/L BUN (7-18) mg/dL Creatinine (0.51-1.17) mg/dL Est Cr Clr Drug Dosing Estimated GFR (MDRD) mL/min Glucose (70-140) mg/dL Calcium (8.7-10.3) mg/dL Troponin I (0.000-0.056) ng/mL Specimen Type Urine Color (YELLOW) Urine Appearance (CLEAR) Urine pH (5.0-9.0) Ur Specific [place] (1.005-1.030) Urine Protein (NEGATIVE) mg/dL Urine Glucose (UA) (NEGATIVE) mg/dL Urine Ketones (NEGATIVE) mg/dL Urine Occult Blood (NEGATIVE) Urine Nitrite (NEGATIVE) Urine Bilirubin (NEGATIVE) Urine Urobilinogen (0.2-1.0) E.U./dL Ur Leukocyte Esterase (NEGATIVE) Urine RBC (0-5) /HPF Urine WBC (0-5) /HPF Ur Epithelial Cells /LPF Amorphous Sediment (0/HPF) /HPF Urine Bacteria (NONE TO FEW) /HPF Urine Opiates Screen Negative (NEGATIVE) Ur Oxycodone Screen Negative (NEGATIVE) Urine Methadone Screen Negative (NEGATIVE) Ur Propoxyphene Screen Negative (NEGATIVE) Ur Barbiturates Screen Negative (NEGATIVE) Ur Tricyclics Screen Negative (NEGATIVE) Ur Phencyclidine Scrn Negative (NEGATIVE) Ur Amphetamine Screen Negative (NEGATIVE) U Methamphetamines Scrn Negative (NEGATIVE) U Benzodiazepines Scrn Positive H (NEGATIVE) U Cocaine Metab Screen Negative (NEGATIVE) U Marijuana (THC) Screen Positive H (NEGATIVE) Meds: Medications Discontinued Medications Generic Name Dose Route Start Last Admin Trade Name Freq PRN Reason Stop Dose Admin Aspirin 324 mg 08/12/20 03:34 08/12/20 03:35 Aspirin 81 Mg Tab.Chew PO 08/12/20 03:35 324 mg ONETIME ONE Administration Lorazepam 0.5 mg 08/12/20 03:59 08/12/20 04:05 Lorazepam 2 Mg/Ml Sdv IVPUSH 08/12/20 04:00 0.5 mg ONETIME ONE Administration - Re-Assessments/Exams Free Text/Narrative Re-Assessment/Exam: 08/12/20 05:49 From the time she came until she left AMA patient was severely agitated. Since she was complaining of chest pain along with pain everywhere, she was given aspirin 81 mg x 4 soon after arrival. She is allergic to nitroglycerin. We eventually were able to get an IV and lab drawn. We tried lorazepam 0.5 mg IV to calm her a little without success. We ran EKG twice but couldn't get a good one since she wouldn't hold still. She uses marijuana and her boss says she had it recently. After 45 minutes of trying to calm her down, waiting on labs, attempting to finish tests and exam, I called [facility] for some advice. I visited with the MD from my office first while the [facility] nurse with getting information via the camera. This only seemed to increase her agitation for some reason. She said I was "calling the principal" on her. She said we were judging her and accusing her of drug use. We weren't helping her and she wanted to leave. She was yelling and making threats. I asked her to at least stay long enough to get the results from the blood tests but she refused. She started pulling off her cuff and at her IV. The nurse quickly removed the IV from her arm before she stormed out the door. The last thing before heading out the door she met me face to face and screamed that I should be ashamed of myself for judging her and not helping her, and something about the "hippocratic oath". She left with her boss. About ten minutes after she left we got results of her troponin elevation (0.272). I tried calling the numbers on her face sheet but all were no longer in service. We tried looking up her boss in the phone book but that number didn't go through. Finally the 5th number we tried I was able to reach her daughter, Zahra, in [place]. I asked her if she had any way to reach her mom and she said she could call her but didn't give me the number. We discussed HIPAA and she said that her mom is okay with her receiving her medical information. This is an unusual situation and I tried to work within guidelines but also make sure the patient would get the care she needs as quickly as possible so I told her daughter that she had left AMA but labs indicate she may be having a heart attack and needs to get to a hospital that can treat her for this. A few minutes later Mitch, the boss, called back; the daughter had reached them en route home. I informed him of the need to get her to a hospital for treatment. We discussed that she may not want to come back here but if she wishes he could take her to [place] or [place] or even another small ER for transport to one of those. A few minutes later we heard the ambulance paged out for her. The maintenance fitter called that he is taking her to [facility] in [place] and requested we inform them. I called [facility] and informed the nurse that she is coming and that she left here AMA before we knew she had an elevated troponin. She requested we fax all information to them. Departure - Departure Time of Disposition: 04:38 Disposition: Against Medical Advice 07 Clinical Impression: Elevated troponin, Cannabinoid hyperemesis syndrome Chest pain Qualifiers: Chest pain type: unspecified Qualified Code(s): R07.9 - Chest pain, unspecified - Discharge Information Referrals: Jayy Dickerson MD [Primary Care Provider] - Forms: ED Department Discharge Sepsis Event Note (ED) - Focused Exam Vital Signs: Vital Signs Temp Pulse Resp BP BP Pulse Ox 08/12/20 04:31 119 H 30 H 163/139 H 97 08/12/20 04:20 128 H 28 H 170/141 H 08/12/20 04:16 118 H 26 H 94 L 08/12/20 04:07 111 H 24 H 155/137 H 95 08/12/20 03:46 108 H 194/118 H 96 08/12/20 03:34 96.6 F L 119 H 32 H 97 - My Orders Last 24 Hours: My Active Orders 08/12/20 04:01 EKG Documentation Completion [RC] ASDIRECTED EKG 12 Lead [EK] Stat - Assessment/Plan Last 24 Hours: My Active Orders 08/12/20 04:01 EKG Documentation Completion [RC] ASDIRECTED EKG 12 Lead [EK] Stat
[2020-08-12 04:42] LABS: THC SCREEN,URINE 50 NG/ML POSITIVE (NEGATIVE)
[2020-08-12 04:43] LABS: ANION GAP 19.5 mmol/L (5-15); CHLORIDE,CL 104 mmol/L (98-107); SODIUM,NA 144 mmol/L (136-145)
[2020-08-12 04:43] LABS: BARBITURATE SCREEN,URINE NEGATIVE (NEGATIVE); BENZODIAZEPINES SCREEN,URINE POSITIVE (NEGATIVE); TCA SCREEN,URINE NEGATIVE (NEGATIVE)
[2020-08-12 06:28] VITALS: BP 163/139; PULSE 119
== END 2020-08-12 04:38 | disposition left against medical advice (07) ==
LOC: KA.ED 03:25
DX: R11.10 Vomiting, unspecified (principal); F12.10 Cannabis abuse, uncomplicated; R07.9 Chest pain, unspecified; R77.8 Other specified abnormalities of plasma proteins; J45.909 Unspecified asthma, uncomplicated; I25.2 Old myocardial infarction; Z79.82 Long term (current) use of aspirin; Z88.8 Allergy status to other drugs, medicaments and biological substances
CPT/HCPCS: 80048; 80305-QW; 81001; 84484; 85025; 93005; 96374; 99284; 99285-25; A9270-GY; J2060

== ENCOUNTER 2020-08-13 06:33 | Emergency (ER) | payer MEDICAID ==
--- NOTE | 2020-08-13 07:19 | EDM.PDOC ---
ED HPI GENERAL MEDICAL PROBLEM - General Chief Complaint: General Stated Complaint: abdominal pain Time Seen by Provider: 08/13/20 07:09 - History of Present Illness INITIAL COMMENTS - FREE TEXT/NARRATIVE: When I arrived she was talking loudly to the nurse and writhing on the table. This is the same patient that was here 24 hours earlier and left AMA after yelling and screaming at us threateningly. She had become especially agitated when I consulted [facility] on further treatment options. Today she accused me of using [id number] (during the last visit) just to make a spectacle of her and and had told them she was using drugs. This wasn't the case at all but I know the [facility] nurse, after observing her actions, had asked if she had ingested something. So today I directly asked her if she would agree to be respectful with us and without threats, before we treat her. This upset her and she again left AMA prior to exam. When she left last time in such a dramatic way, the DON instructed us to request police presence if she returns to ER, so today this was done. 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: Other Medication(s) Abdomen Pain Score (Numeric/FACES): 10 - Related Data Allergies Allergy/AdvReac Type Severity Reaction Status Date / Time amoxicillin Allergy Rash Verified 08/13/20 07:07 Benzodiazepines Allergy Agitation Verified 08/13/20 07:07 fluoride Allergy Nausea and Verified 08/13/20 07:07 Vomiting haloperidol [From Haldol] Allergy Syncope Verified 08/13/20 07:07 metoclopramide HCl Allergy Rash Verified 08/13/20 07:07 [From Reglan] nitroglycerin Allergy Bleeding Verified 08/13/20 07:07 Home Meds: Home Meds Aspirin 243 mg PO TID 01/26/19 [History] Clopidogrel Bisulfate [Plavix] 75 mg PO BID 08/13/20 [History] Past Medical History HEENT History: Reports: Other (See Below) Other HEENT History: Right ear infection which started treatment approx 2 weeks ago. Cardiovascular History: Reports: Blood Clots/VTE/DVT, [place] Respiratory History: Reports: Asthma, Other (See Below) Other Respiratory History: COVID19 dx Jul 01, 2019. 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 Dermatologic History: Reports: Eczema, Psoriasis, Other (See Below) Other Dermatologic History: States chronic psoriasis in bilat ears. Right more then left. - Infectious Disease History Infectious Disease History: Reports: C-Difficile - Past Surgical History HEENT Surgical History: Reports: Tonsillectomy GI Surgical History: Reports: Colonoscopy, Hernia, Abdominal Female Surgical History: Reports: Section Social & Family History - Caffeine Use Caffeine Use: Reports: Coffee ED ROS GENERAL - Review of Systems Review Of Systems: Unable To Obtain Reason Not Obtained: patient left AMA ED EXAM, GENERAL - Physical Exam Exam: Not Obtained Reason Not Obtained: patient left AMA Course - Vital Signs Last Recorded V/S: Last Vital Signs Temp 97.3 F 08/13/20 06:55 Pulse 109 H 08/13/20 06:55 Resp 35 H 08/13/20 06:55 BP 164/105 H 08/13/20 06:55 Pulse Ox 96 08/13/20 06:55 Departure - Departure Time of Disposition: 07:36 Disposition: Against Medical Advice 07 Condition: Undetermined Clinical Impression: Left against medical advice - Discharge Information Sepsis Event Note (ED) - Evaluation Sepsis Screening Result: No Definite Risk - Focused Exam Vital Signs: Vital Signs Temp Pulse Resp BP Pulse Ox 08/13/20 06:55 97.3 F 109 H 35 H 164/105 H 96
[2020-08-13 07:30] VITALS: BP 145/77; PULSE 94
== END 2020-08-13 07:13 | disposition left against medical advice (07) ==
LOC: KA.ED 06:33
DX: Z53.21 Procedure and treatment not carried out due to patient leaving prior to being seen by health care provider (principal)

== ENCOUNTER 2020-08-13 21:28 | Emergency (ER) | payer MEDICAID ==
[2020-08-13 21:41] VITALS: BP 126/79; PULSE 85
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
[2020-08-13] MEDS: Alum Hydrox/Mag Hydrox/Simeth 30 ML, Lidocaine 2% 15 ML PO ONE ×2 (21:52)
[2020-08-13] MEDS: hydrOXYzine HCl 25 MG Tab PO ONE (21:53)
--- NOTE | 2020-08-14 07:57 | CR ---
[id number] RAD/RAD Elbow Right 3V Min EXAM: RAD Elbow Right 3V Min INDICATION: RIGHT ELBOW PAIN COMPARISON: None. DISCUSSION: No fracture, joint effusion, dislocation or other osseous abnormality. IMPRESSION: 1. Negative exam. Wale Nunn MD 08/14/20 0756 Thank you for allowing us to participate in the care of your patient.
== END 2020-08-13 22:10 | disposition home or self-care (01) ==
LOC: KA.ED 21:28
DX: M25.521 Pain in right elbow (principal); R10.84 Generalized abdominal pain; J45.909 Unspecified asthma, uncomplicated; R21 Rash and other nonspecific skin eruption; Z88.1 Allergy status to other antibiotic agents; Z88.8 Allergy status to other drugs, medicaments and biological substances; Z79.82 Long term (current) use of aspirin; Z79.02 Long term (current) use of antithrombotics/antiplatelets
CPT/HCPCS: 73080-RT; 99283; 99284; A9270-GY

== ENCOUNTER 2020-08-14 08:53 | Emergency (ER) | payer MEDICAID ==
--- NOTE | 2020-08-14 09:07 | EDM.PDOC ---
ED HPI GENERAL MEDICAL PROBLEM - General Chief Complaint: Cardiovascular Problem Stated Complaint: RASH ON BACK,CAN'T SLEEP Time Seen by Provider: 08/14/20 09:07 Source of Information: Reports: Patient - History of Present Illness INITIAL COMMENTS - FREE TEXT/NARRATIVE: Berna, 50-year-old female, returns to the emergency department again, this time complaining that she thinks she is withdrawing and having elevated blood pressure. She believes that she is withdrawing secondary to the morphine she was given over the weekend for her cardiac procedure. She states that she needed Klonopin for control of her blood pressure when she was weaning off Suboxone many years ago. She is fairly cooperative and straightforward at this time giving more accurate details of her cardiac procedure. I question her as to why she was not given beta-adin which is standard of care in almost all cases for anyone undergoing OK or cardiac stenting. She is unsure of that stating she is just been doing her injections and taking her Plavix. She denies any chest pain or discomfort at this time she is concerned with her blood pressure.Does mention that she has continued issues with sleep. Onset: Today Duration: Day(s):, Getting Worse Location: Reports: Generalized Quality: Reports: Pressure Severity: Moderate Improves with: Reports: None Worsens with: Reports: Rest - Related Data Allergies Allergy/AdvReac Type Severity Reaction Status Date / Time amoxicillin Allergy Rash Verified 08/14/20 09:03 Benzodiazepines Allergy Agitation Verified 08/14/20 09:03 fluoride Allergy Nausea and Verified 08/14/20 09:03 Vomiting haloperidol [From Haldol] Allergy Syncope Verified 08/14/20 09:03 metoclopramide HCl Allergy Rash Verified 08/14/20 09:03 [From Reglan] nitroglycerin Allergy Bleeding Verified 08/14/20 09:03 Home Meds: Home Meds Aspirin 243 mg PO BID 01/26/19 [History] Clopidogrel Bisulfate [Plavix] 75 mg PO BID 08/13/20 [History] Past Medical History HEENT History: Reports: Other (See Below) Other HEENT History: Right ear infection which started treatment approx 2 weeks ago. Cardiovascular History: Reports: Blood Clots/VTE/DVT, [place], Stents Respiratory History: Reports: Asthma, Other (See Below) Other Respiratory History: COVID19 dx Jul 01, 2019. 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 Dermatologic History: Reports: Eczema, Psoriasis, Other (See Below) Other Dermatologic History: States chronic psoriasis in bilat ears. Right more then left. - Infectious Disease History Infectious Disease History: Reports: C-Difficile - Past Surgical History HEENT Surgical History: Reports: Tonsillectomy GI Surgical History: Reports: Colonoscopy, Hernia, Abdominal Female Surgical History: Reports: Section Social & Family History - Family History Family Medical History: No Pertinent Family History - Caffeine Use Caffeine Use: Reports: Coffee ED ROS GENERAL - Review of Systems Review Of Systems: Comprehensive ROS is negative, except as noted in HPI. ED EXAM, GENERAL - Physical Exam Exam: See Below Free Text/Narrative:: Alert, oriented, in no acute distress. She is verbally cooperative at this time. HEENT is negative discharge or deformity. PERRLA no icterus no injection. Thorax is clear with no wheezes nor crackles. Cardiac S1 is 2 I do not appreciate murmur. There is scattered bruising to the integument of the abdominal region from her Lovenox injections as well as posterior thorax in association with fine rash that was noted on yesterday's examination. Bruising to the extremities from her IV starts and procedural actions. She denies any pain at this time with no pain elicited to the examination. Course - Vital Signs Last Recorded V/S: Last Vital Signs Temp 97.8 F 08/14/20 08:54 Pulse 97 08/14/20 10:06 Resp 20 08/14/20 08:54 BP 134/69 08/14/20 10:06 Pulse Ox 99 08/14/20 10:06 - Orders/Labs/Meds Meds: Medications Discontinued Medications Generic Name Dose Route Start Last Admin Trade Name Freq PRN Reason Stop Dose Admin Clonidine HCl 0.1 mg 08/14/20 09:15 08/14/20 09:22 Clonidine 0.1 Mg Tab PO 08/14/20 09:16 0.1 mg ONETIME ONE Administration - Re-Assessments/Exams Free Text/Narrative Re-Assessment/Exam: 08/14/20 11:13 0.1 Price showed significant improvement of her blood pressure. Contact via phone with [facility] and was able to confirm that when she was discharged she was given samples of Plavix along with prescription for Plavix 75 mg daily. Metoprolol 25 mg 12.5 twice daily and Crestor 40 mg daily. These prescriptions were placed into the bag with her samples of which she states to me she is unaware of but will find them and get them filled. By the time we are preparing for discharge after receiving this information she is becoming more agitated and writhing on the cart seemingly with agitation increasing. She is willingly discharged with instructions and will diamond picker her medications and follow-up as needed with provider for her post cardiac work-up. Free Text/Narrative Re-Assessment/Exam: 08/14/20 11:15 Bibi Cohen from social worker psychiatric of the hospital was here obtaining information as she is presented with her son as well is unknown factors of these agitation episodes of having a major effect on his wellbeing. When contacting [facility] emergency department in [place] nursing staff there said she was very agitated and disrespectful and at 1 point was done in the presence of her son and as well. I did speak with Olivia with [facility] social worker psychiatric and will be pursuing further information investigation. Departure - Departure Time of Disposition: 10:09 Disposition: Home, Self-Care 01 Condition: Fair Clinical Impression: Status post angioplasty with stent HTN (hypertension) Qualifiers: Hypertension type: essential hypertension Qualified Code(s): I10 - Essential (primary) hypertension Instructions: Hypertension, Adult, [id number] Referrals: Jayy Dickerson MD [Primary Care Provider] - Forms: ED Department Discharge Additional Instructions: Your blood pressure is in good range at this time. In contacting [facility] you were given prescriptions at the time you signed out AMA for Plavix 75 mg daily, metoprolol 25 mg tablet one half to be taken twice daily and Crestor a cholesterol medicine 40 mg daily. These medications are in the bed in which your samples were provided. You need to get these medications filled and start taking them as they are very important to your wellbeing and your heart health. This medication will also k eep your blood pressure and check and help prevent further heart issues. You need to follow-up with the clinic provider for your cardiac issues as well as your other abdominal complaints and chronic skin issues as well as your sleeping concerns. Sepsis Event Note (ED) - Evaluation Sepsis Screening Result: No Definite Risk - Focused Exam Vital Signs: Vital Signs Temp Pulse Resp BP BP Pulse Ox 08/14/20 10:06 97 134/69 99 08/14/20 09:46 97 157/104 H 100 08/14/20 09:32 107 H 140/105 H 97 08/14/20 09:22 127/103 H 08/14/20 09:04 98 146/94 H 08/14/20 08:54 97.8 F 105 H 20 163/109 H 96 - Problem List & Annotations (1) HTN (hypertension) SNOMED Code(s): 52620035 Code(s): I10 - ESSENTIAL (PRIMARY) HYPERTENSION Status: Acute Priority: High Qualifiers: Hypertension type: essential hypertension Qualified Code(s): I10 - Essent ial (primary) hypertension (2) Status post angioplasty with stent SNOMED Code(s): 901146238, 476554467 Code(s): Z95.820 - PERIPHERAL VASCULAR ANGIOPLASTY STATUS W IMPLANTS AND GRAFTS Status: Acute Priority: Medium (3) Anxiety SNOMED Code(s): 96339520 Code(s): F41.9 - ANXIETY DISORDER, UNSPECIFIED Status: Chronic Priority: Medium - Problem List Review Problem List Initiated/Reviewed/Updated: Yes - Assessment/Plan Plan: Your blood pressure is in good range at this time. In contacting [facility] you were given prescriptions at the time you signed out AMA for Plavix 75 mg daily, metoprolol 25 mg tablet one half to be taken twice daily and Crestor a cholesterol medicine 40 mg daily. These medications are in the bed in which your samples were provided. You need to get these medications filled and start taking them as they are very important to your wellbeing and your heart health. This medication will also keep your blood pressure and check and help prevent further heart issues. You need to follow-up with the clinic provider for your cardiac issues as well as your other abdominal complaints and chronic skin issues as well as your sleeping concerns.
[2020-08-14] MEDS: cloNIDine 0.1 MG Tab PO ONE (09:22)
[2020-08-14 09:47] VITALS: PULSE 97
[2020-08-14 10:07] VITALS: BP 134/69
== END 2020-08-14 10:20 | disposition home or self-care (01) ==
LOC: KA.ED 08:53
DX: I10 Essential (primary) hypertension (principal); M79.81 Nontraumatic hematoma of soft tissue; Z95.5 Presence of coronary angioplasty implant and graft; J45.909 Unspecified asthma, uncomplicated; Z86.718 Personal history of other venous thrombosis and embolism; Z86.73 Personal history of transient ischemic attack (TIA), and cerebral infarction without residual deficits; Z86.16 Personal history of COVID-19; Z88.0 Allergy status to penicillin; Z88.8 Allergy status to other drugs, medicaments and biological substances; Z79.82 Long term (current) use of aspirin; Z79.02 Long term (current) use of antithrombotics/antiplatelets
CPT/HCPCS: 99283; 99284; A9270-GY

== ENCOUNTER 2020-11-17 18:41 | Emergency (ER) | payer MEDICAID ==
[2020-11-17 18:58] VITALS: PULSE 130
[2020-11-17] MEDS ORDERED: cloNIDine 0.1 MG Tab PO ONE (19:10)
--- NOTE | 2020-11-17 19:19 | EDM.PDOC ---
ED HPI GENERAL MEDICAL PROBLEM - General Chief Complaint: Abdominal Pain Stated Complaint: CHEST PAIN Time Seen by Provider: 11/17/20 19:00 Source of Information: Reports: Patient, EMS, Police History Limitations: Reports: No Limitations - History of Present Illness INITIAL COMMENTS - FREE TEXT/NARRATIVE: Patient presents with mid-abdominal pain for 2 days. She has also not eaten or passed stool in 2 days. She is afraid if she eats it will trigger vomiting. She has been having dry heaves; in the past she has had frequent vomiting with similar abdominal pain. She says it feels similar to a previous C. diff infection she had. She would like Clonidine and says it has helped her in the past. I discussed with her that Clonidine is used for hypertension and sometimes for opioid treatment withdrawal in a monitored longer-term regimen. She says it was first used with her for opioid withdrawal but she hasn't used opioids for 6 years. Today she took 2 Flexeril tabs to try to treat her abdominal pain but no help. Lower Abdominal Pain Score (Numeric/FACES): 7 - Related Data Allergies Allergy/AdvReac Type Severity Reaction Status Date / Time amoxicillin Allergy Rash Verified 11/17/20 18:54 Benzodiazepines Allergy Agitation Verified 11/17/20 18:54 fluoride Allergy Nausea and Verified 11/17/20 18:54 Vomiting haloperidol [From Haldol] Allergy Syncope Verified 11/17/20 18:54 metoclopramide HCl Allergy Rash Verified 11/17/20 18:54 [From Reglan] nitroglycerin Allergy Bleeding Verified 11/17/20 18:54 Home Meds: Home Meds Aspirin [Aspirin EC] 81 mg PO DAILY 11/17/20 [History] Cyclobenzaprine [Flexeril] 20 mg PO DAILY PRN 11/17/20 [History] Past Medical History HEENT History: Reports: Other (See Below) Other HEENT History: Right ear infection which started treatment approx 2 weeks ago. Cardiovascular History: Reports: Blood Clots/VTE/DVT, [place], Stents Respiratory History: Reports: Asthma, Other (See Below) Other Respiratory History: COVID19 dx Jul 01, 2019. 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 Dermatologic History: Reports: Eczema, Psoriasis, Other (See Below) Other Dermatologic History: States chronic psoriasis in bilat ears. Right more then left. - Infectious Disease History Infectious Disease History: Reports: C-Difficile - Past Surgical History HEENT Surgical History: Reports: Tonsillectomy GI Surgical History: Reports: Colonoscopy, Hernia, Abdominal Female Surgical History: Reports: Section Social & Family History - Family History Family Medical History: No Pertinent Family History - Tobacco Use Tobacco Use Status *Q: Former Tobacco User Used Tobacco, but Quit: Yes Month/Year Tobacco Last Used: 07/2020 - Caffeine Use Caffeine Use: Reports: Coffee - Recreational Drug Use Recreational Drug Use: Yes Recreational Drug Type: Reports: Marijuana/Hashish ED ROS GENERAL - Review of Systems Review Of Systems: See Below Constitutional: Reports: Malaise. Denies: Fever, Chills, Weakness HEENT: Reports: No Symptoms Respiratory: Denies: Shortness of Breath, Cough Cardiovascular: Denies: Chest Pain, Syncope GI/Abdominal: Reports: Abdominal Pain, Nausea, Vomiting (dry heaves). Denies: Constipation, Diarrhea : Denies: Dysuria, Flank Pain Musculoskeletal: Reports: No Symptoms Skin: Denies: Cyanosis, Jaundice, Mottled, Pallor, Diaphoresis Neurological: Denies: Confusion, Dizziness, Seizure, Syncope, Trouble Speaking, Difficulty Walking Psychiatric: Reports: Agitation. Denies: Anxiety, Confusion ED EXAM, GI/ABD - Physical Exam Exam: See Below Exam Limited By: No Limitations General Appearance: Alert, WD/WN, Anxious Eyes: Bilateral: Normal Appearance, EOMI Ears: Normal External Exam, Hearing Grossly Normal Nose: Normal Inspection, No Blood Throat/Mouth: Normal Inspection, Normal Lips, Normal Voice, No Airway Compromise Head: Atraumatic, Normocephalic Neck: Normal Inspection, Full Range of Motion Respiratory/Chest: No Respiratory Distress, Lungs Clear, Normal Breath Sounds Cardiovascular: No Murmur, Tachycardia (regular) GI/Abdominal Exam: Soft, No Organomegaly, No Distention, No Abnormal Bruit, Tender (mid-epigastrium, mild) Back Exam: Normal Inspection, Full Range of Motion. No: CVA Tenderness (L), CVA Tenderness (R) Extremities: Normal Inspection, Normal Range of Motion Neurological: Alert, Oriented Psychiatric: Anxious, Other (constant writhing on the exam table) Skin Exam: Warm, Dry, Intact, Normal Color, No Rash Course - Vital Signs Last Recorded V/S: Last Vital Signs Temp 97.4 F 11/17/20 18:52 Pulse 130 H 11/17/20 18:52 Resp 26 H 11/17/20 19:23 BP 148/104 H 11/17/20 19:23 Pulse Ox 96 11/17/20 18:52 - Orders/Labs/Meds Labs: Laboratory Tests 11/17/20 11/17/20 11/17/20 Range/Units 18:51 18:58 19:05 WBC 11.11 H (5.00-10.00) 10^3/uL RBC 5.16 (3.80-5.50) 10^6/uL Hgb 16.2 H (12.0-16.0) g/dL Hct 47.3 H (37.0-47.0) % MCV 91.7 (82.0-92.0) fL MCH 31.4 H (27.0-31.0) pg MCHC 34.2 (32.0-36.0) g/dL RDW 13.1 (11.5-14.5) % Plt Count 338 (150-400) 10^3/uL MPV 10.0 (7.4-10.4) fL Immature Gran % (Auto) 0.1 (0.0-5.0) % Neut % (Auto) 64.9 (50.0-70.0) % Lymph % (Auto) 25.1 (20.0-40.0) % [place] % (Auto) 8.8 H (2.0-8.0) % Eos % (Auto) 0.4 L (1.0-3.0) % Baso % (Auto) 0.7 (0.0-1.0) % Neut # (Auto) 7.21 H (2.50-7.00) 10^3/uL Lymph # (Auto) 2.79 (1.00-4.00) 10^3/uL [place] # (Auto) 0.98 H (0.10-0.80) 10^3/uL Eos # (Auto) 0.04 L (0.10-0.30) 10^3/uL Baso # (Auto) 0.08 (0.00-0.10) 10^3/uL Immature Gran # (Auto) 0.01 (0.00-0.50) 10^3/uL Sodium (136-145) mmol/L Potassium (3.5-5.1) mmol/L Chloride (98-107) mmol/L Carbon Dioxide (21.0-32.0) mmol/L Anion Gap (5-15) mmol/L BUN (7-18) mg/dL Creatinine (0.51-1.17) mg/dL Est Cr Clr Drug Dosing mL/min Estimated GFR (MDRD) mL/min Glucose (70-140) mg/dL Calcium (8.7-10.3) mg/dL Total Bilirubin (0.2-1.0) mg/dL AST (15-37) U/L ALT (14-63) U/L Alkaline Phosphatase (46-116) U/L Total Protein (6.4-8.2) g/dL Albumin (3.40-5.00) g/dL Specimen Type Urincc Urine Color Yellow (YELLOW) Urine Appearance Slightly cloudy H (CLEAR) Urine pH 5.5 (5.0-9.0) Ur Specific [place] 1.030 (1.005-1.030) Urine Protein 100 H (NEGATIVE) mg/dL Urine Glucose (UA) Negative (NEGATIVE) mg/dL Urine Ketones 15 H (NEGATIVE) mg/dL Urine Occult Blood Negative (NEGATIVE) Urine Nitrite Negative (NEGATIVE) Urine Bilirubin Moderate H (NEGATIVE) Urine Urobilinogen 0.2 (0.2-1.0) E.U./dL Ur Leukocyte Esterase Negative (NEGATIVE) Urine RBC 0-5 (0-5) /HPF Urine WBC 0-5 (0-5) /HPF Ur Epithelial Cells Few /LPF Other Crystals Few /HPF Amorphous Sediment Few (0/HPF) /HPF Urine Bacteria Not seen (NONE TO FEW) /HPF Urine Mucus Moderate H (NEGATIVE) /LPF Urine Opiates Screen Negative (NEGATIVE) Ur Oxycodone Screen Negative (NEGATIVE) Urine Methadone Screen Negative (NEGATIVE) Ur Propoxyphene Screen Negative (NEGATIVE) Ur Barbiturates Screen Negative (NEGATIVE) Ur Tricyclics Screen Positive H (NEGATIVE) Ur Phencyclidine Scrn Negative (NEGATIVE) Ur Amphetamine Screen Negative (NEGATIVE) U Methamphetamines Scrn Negative (NEGATIVE) U Benzodiazepines Scrn Negative (NEGATIVE) U Cocaine Metab Screen Negative (NEGATIVE) U Marijuana (THC) Screen Positive H (NEGATIVE) 11/17/20 Range/Units 19:05 WBC (5.00-10.00) 10^3/uL RBC (3.80-5.50) 10^6/uL Hgb (12.0-16.0) g/dL Hct (37.0-47.0) % MCV (82.0-92.0) fL MCH (27.0-31.0) pg MCHC (32.0-36.0) g/dL RDW (11.5-14.5) % Plt Count (150-400) 10^3/uL MPV (7.4-10.4) fL Immature Gran % (Auto) (0.0-5.0) % Neut % (Auto) (50.0-70.0) % Lymph % (Auto) (20.0-40.0) % [place] % (Auto) (2.0-8.0) % Eos % (Auto) (1.0-3.0) % Baso % (Auto) (0.0-1.0) % Neut # (Auto) (2.50-7.00) 10^3/uL Lymph # (Auto) (1.00-4.00) 10^3/uL [place] # (Auto) (0.10-0.80) 10^3/uL Eos # (Auto) (0.10-0.30) 10^3/uL Baso # (Auto) (0.00-0.10) 10^3/uL Immature Gran # (Auto) (0.00-0.50) 10^3/uL Sodium 142 (136-145) mmol/L Potassium 3.6 (3.5-5.1) mmol/L Chloride 103 (98-107) mmol/L Carbon Dioxide 21.0 (21.0-32.0) mmol/L Anion Gap 21.6 H (5-15) mmol/L BUN 16 (7-18) mg/dL Creatinine 1.03 (0.51-1.17) mg/dL Est Cr Clr Drug Dosing 64.45 mL/min Estimated GFR (MDRD) 56 mL/min Glucose 124 (70-140) mg/dL Calcium 9.7 (8.7-10.3) mg/dL Total Bilirubin 0.3 (0.2-1.0) mg/dL AST 18 (15-37) U/L ALT 22 (14-63) U/L Alkaline Phosphatase 81 (46-116) U/L Total Protein 8.4 H (6.4-8.2) g/dL Albumin 4.64 (3.40-5.00) g/dL Specimen Type Urine Color (YELLOW) Urine Appearance (CLEAR) Urine pH (5.0-9.0) Ur Specific [place] (1.005-1.030) Urine Protein (NEGATIVE) mg/dL Urine Glucose (UA) (NEGATIVE) mg/dL Urine Ketones (NEGATIVE) mg/dL Urine Occult Blood (NEGATIVE) Urine Nitrite (NEGATIVE) Urine Bilirubin (NEGATIVE) Urine Urobilinogen (0.2-1.0) E.U./dL Ur Leukocyte Esterase (NEGATIVE) Urine RBC (0-5) /HPF Urine WBC (0-5) /HPF Ur Epithelial Cells /LPF Other Crystals /HPF Amorphous Sediment (0/HPF) /HPF Urine Bacteria (NONE TO FEW) /HPF Urine Mucus (NEGATIVE) /LPF Urine Opiates Screen (NEGATIVE) Ur Oxycodone Screen (NEGATIVE) Urine Methadone Screen (NEGATIVE) Ur Propoxyphene Screen (NEGATIVE) Ur Barbiturates Screen (NEGATIVE) Ur Tricyclics Screen (NEGATIVE) Ur Phencyclidine Scrn (NEGATIVE) Ur Amphetamine Screen (NEGATIVE) U Methamphetamines Scrn (NEGATIVE) U Benzodiazepines Scrn (NEGATIVE) U Cocaine Metab Screen (NEGATIVE) U Marijuana (THC) Screen (NEGATIVE) Meds: Medications Discontinued Medications Generic Name Dose Route Start Last Admin Trade Name Freq PRN Reason Stop Dose Admin Acetaminophen 1,000 mg 11/17/20 19:20 Acetaminophen 500 Mg Tab PO 11/17/20 19:21 ONETIME ONE Clonidine HCl 0.1 mg 11/17/20 19:10 11/17/20 19:13 Clonidine 0.1 Mg Tab PO 11/17/20 19:11 0.1 mg ONETIME ONE Administration Ketorolac Tromethamine 30 mg 11/17/20 19:39 11/17/20 19:45 Ketorolac 30 Mg/Ml Sdv IVPUSH 11/17/20 19:40 30 mg ONETIME ONE Administration - Re-Assessments/Exams Free Text/Narrative Re-Assessment/Exam: 11/17/20 19:28 Several hours ago this patient came to the hospital and requested to be seen for abdominal pain. When the payroll secretary asked her to put on a mask, patient refused. When informed that she needed to wear a mask to come in she stepped toward the payroll secretary in a very threatening manner. When she was informed that she wouldn't be allowed in to ER until police arrived she left and from [place], called for ambulance ride to [place]. However when the ambulance arrived she refused to go with them because her mother would then have to drive 140 mile round trip to pick her up. A couple hours later she called ambulance for transport here to [place] complaining of chest pain. We are waiting on labs now. We have given a dose of Clonidine 0.1 mg which has helped the BP quite well. I recommended a stool sample to check for C. diff, since she cannot give a stool sample we offered a specimen cup to take with her when she leaves. 11/17/20 20:00 UDS shows positive for marijuana and tricyclics. Her pain is not improving after the Clonidine and Toradol. She is writhing on the table a little more vigorously than before. I discussed with her that I feel this is due to her marijuana use. She is adamant that she is "absolutely sure it is not from marijuana". I then recommended a CT of abdomen to find the cause but she abruptly became agitated and refused any further treatment. She crawled off the exam table and refused to sign an AMA form and left. Departure - Departure Time of Disposition: 20:07 Disposition: Against Medical Advice 07 Condition: Undetermined Clinical Impression: Cannabinoid hyperemesis syndrome Abdominal pain Qualifiers: Abdominal location: generalized Qualified Code(s): R10.84 - Generalized abdominal pain - Discharge Information Referrals: Jayy Dickerson MD [Primary Care Provider] - Forms: ED Department Discharge Sepsis Event Note (ED) - Evaluation Sepsis Screening Result: No Definite Risk - Focused Exam Vital Signs: Vital Signs Temp Pulse Resp BP BP Pulse Ox 11/17/20 19:23 26 H 148/104 H 11/17/20 19:13 187/119 H 11/17/20 18:52 97.4 F 130 H 20 165/105 H 96
[2020-11-17] MEDS ORDERED: Acetaminophen 500 MG Tab PO ONE (19:20)
[2020-11-17 19:25] VITALS: BP 148/104
[2020-11-17 19:34] LABS: BARBITURATE SCREEN,URINE NEGATIVE (NEGATIVE); BENZODIAZEPINES SCREEN,URINE NEGATIVE (NEGATIVE)
[2020-11-17 19:35] LABS: TCA SCREEN,URINE POSITIVE (NEGATIVE); THC SCREEN,URINE 50 NG/ML POSITIVE (NEGATIVE)
[2020-11-17] MEDS ORDERED: Ketorolac 30 MG/ML SDV IVPUSH ONE (19:39)
[2020-11-17 19:43] LABS: ANION GAP 21.6 mmol/L (5-15)
== END 2020-11-17 20:00 | disposition left against medical advice (07) ==
LOC: KA.ED 18:41
DX: R10.84 Generalized abdominal pain (principal); R11.2 Nausea with vomiting, unspecified; T40.7X5A Adverse effect of cannabis (derivatives), initial encounter; I25.2 Old myocardial infarction; Z79.82 Long term (current) use of aspirin; Z88.0 Allergy status to penicillin; Z88.5 Allergy status to narcotic agent; Z88.8 Allergy status to other drugs, medicaments and biological substances
CPT/HCPCS: 36415; 80053; 80305-QW; 81001; 85025; 96374; 99284; 99284-25; A9270-GY; J1885

== ENCOUNTER 2020-11-27 06:40 | Emergency (ER) | payer MEDICAID ==
--- NOTE | 2020-11-27 07:26 | EDM.PDOC ---
ED HPI GENERAL MEDICAL PROBLEM - General Chief Complaint: ENT Problem Stated Complaint: right ear pain Time Seen by Provider: 11/27/20 07:10 Source of Information: Reports: Patient History Limitations: Reports: No Limitations - History of Present Illness INITIAL COMMENTS - FREE TEXT/NARRATIVE: 50 YO IGGY PRESENTS TO ER COMPLAINING OF RIGHT EAR PAIN WHICH BEGAN 5 DAYS AGO. PT REPORTS SHE HAS BEEN PUTTING RUBBING ALCOHOL IN HER EAR BUT IT HASN'T HELPED. PT DENIES FEVER/CHILLS, NO DIZZINESS, NO RECENT ILLNESSES OR URI SYMPTOMS. Onset Date: 11/22/20 Duration: Day(s): (5) Quality: Reports: Ache Severity: Mild Improves with: Reports: None Worsens with: Reports: None Associated Symptoms: Reports: No Other Symptoms Right Ear Pain Score (Numeric/FACES): 8 - Related Data Allergies Allergy/AdvReac Type Severity Reaction Status Date / Time Benzodiazepines Allergy Agitation Verified 11/27/20 06:50 fluoride Allergy Nausea and Verified 11/27/20 06:50 Vomiting haloperidol [From Haldol] Allergy Syncope Verified 11/27/20 06:50 metoclopramide HCl Allergy Rash Verified 11/27/20 06:50 [From Reglan] nitroglycerin Allergy Bleeding Verified 11/27/20 06:50 Home Meds: Home Meds Aspirin [Aspirin EC] 81 mg PO DAILY 11/17/20 [History] cloNIDine [Catapres] 0.2 mg PO BID 11/27/20 [History] Past Medical History HEENT History: Reports: Other (See Below) Other HEENT History: Right ear infection which started treatment approx 2 weeks ago. Cardiovascular History: Reports: Blood Clots/VTE/DVT, [place], Stents Respiratory History: Reports: Asthma, Other (See Below) Other Respiratory History: COVID19 dx Jul 01, 2019. 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 Dermatologic History: Reports: Eczema, Psoriasis, Other (See Below) Other Dermatologic History: States chronic psoriasis in bilat ears. Right more then left. - Infectious Disease History Infectious Disease History: Reports: C-Difficile - Past Surgical History HEENT Surgical History: Reports: Tonsillectomy GI Surgical History: Reports: Colonoscopy, Hernia, Abdominal Female Surgical History: Reports: Section Social & Family History - Family History Family Medical History: No Pertinent Family History - Tobacco Use Tobacco Use Status *Q: Former Tobacco User Used Tobacco, but Quit: No - Caffeine Use Caffeine Use: Reports: Coffee, Soda - Recreational Drug Use Recreational Drug Use: Yes Drug Use in Last 12 Months: Yes Recreational Drug Type: Reports: Marijuana/Hashish Recreational Drug Use Frequency: Daily ED ROS ENT - Review of Systems Review Of Systems: See Below Constitutional: Reports: No Symptoms HEENT: Reports: Ear Discharge, Ear Pain Respiratory: Reports: No Symptoms Cardiovascular: Reports: No Symptoms Endocrine: Reports: No Symptoms GI/Abdominal: Reports: No Symptoms : Reports: No Symptoms Musculoskeletal: Reports: No Symptoms Skin: Reports: No Symptoms Neurological: Reports: No Symptoms Psychiatric: Reports: No Symptoms Hematologic/Lymphatic: Reports: No Symptoms Immunologic: Reports: No Symptoms ED EXAM, ENT - Physical Exam Exam: See Below Exam Limited By: No Limitations General Appearance: Alert, WD/WN, No Apparent Distress Ears: Hearing Grossly Normal, Normal TMs, Canal Material, Canal Swelling. No: Normal External Exam, Normal Canal, Mastoid Tenderness Nose: Normal Inspection, Normal Mucousa, No Blood Head: Atraumatic, Normocephalic Neck: Normal Inspection, Supple, Non-Tender, Full Range of Motion Respiratory/Chest: No Respiratory Distress, Lungs Clear, Normal Breath Sounds, N o Accessory Muscle Use, Chest Non-Tender Cardiovascular: Normal Peripheral Pulses, Regular Rate, Rhythm, No Edema, No Gallop, No JVD, No Murmur, No Rub GI/Abdominal: Normal Bowel Sounds, Soft, Non-Tender, No Organomegaly, No Distention, No Abnormal Bruit, No Mass Back: Normal Inspection, Full Range of Motion Extremities: Normal Inspection, Normal Range of Motion, Non-Tender, No Pedal Edema, Normal Capillary Refill Neurological: Alert, Oriented, CN II-XII Intact, Normal Cognition, Normal Gait, No Motor/Sensory Deficits Psychiatric: Normal Affect, Normal Mood Skin: Warm, Dry, Intact, Normal Color, No Rash Lymphatic: No Adenopathy Course - Vital Signs Last Recorded V/S: Last Vital Signs Temp 96.2 F L 11/27/20 06:50 Pulse 88 11/27/20 06:50 Resp 22 H 11/27/20 06:50 BP 182/109 H 11/27/20 06:50 Pulse Ox 96 11/27/20 06:50 - Orders/Labs/Meds Meds: Medications Discontinued Medications Generic Name Dose Route Start Last Admin Trade Name Britany PRN Reason Stop Dose Admin Neomycin/Polymyxin/Hydrocortisone 10 ml 11/27/20 07:30 Hydrocortisone/Neomycin/Polymyxin B Otic Susp 10 Ml Bottle EARRT 11/27/20 07:31 ONETIME ONE Departure - Departure Time of Disposition: 07:43 Disposition: Home, Self-Care 01 Condition: Good Clinical Impression: Otitis externa Qualifiers: Otitis externa type: unspecified type Chronicity: acute Laterality: right Qualified Code(s): H60.501 - Unspecified acute noninfective otitis externa, right ear - Discharge Information Instructions: Otitis Externa, [id number] Forms: ED Department Discharge Additional Instructions: 1. DISCHARGE HOME 2. CORTISPORIN OTIC DROPS (DISPENSED IN ER)- 3 DROPS IN AFFECTED EAR Q8 HOURS X 7 DAYS 3. FOLLOW UP WITH PCP IN 48-72 HOURS IF NO IMPROVEMENT 4. MOTRIN 600MG EVERY 6 HOURS FOR PAIN NEEDED 5. TYLENOL 1000MG EVERY 6 HOURS NEEDED FOR PAIN 6. RETURN TO ER FOR WORSENING SYMPTOMS Sepsis Event Note (ED) - Evaluation Sepsis Screening Result: No Definite Risk - Focused Exam Vital Signs: Vital Signs Temp Pulse Resp BP Pulse Ox 11/27/20 06:50 96.2 F L 88 22 H 182/109 H 96 - Assessment/Plan Assessment:: 1. ACUTE RIGHT OTITIS EXTERNA Plan: 1. DISCHARGE HOME 2. CORTISPORIN OTIC DROPS- 3 DROPS IN AFFECTED EAR Q8 HOURS X 7 DAYS 3. FOLLOW UP WITH PCP IN 48-72 HOURS IF NO IMPROVEMENT 4. MOTRIN 600MG EVERY 6 HOURS FOR PAIN NEEDED 5. TYLENOL 1000MG EVERY 6 HOURS NEEDED FOR PAIN 6. RETURN TO ER FOR WORSENING SYMPTOMS
[2020-11-27] MEDS ORDERED: Hydrocortisone/Neomycin/Polymyxin B Otic Susp 10 ML Bottle EARRT ONE (07:30)
[2020-11-27 07:54] VITALS: BP 175/102; PULSE 91
== END 2020-11-27 07:52 | disposition home or self-care (01) ==
LOC: KA.ED 06:40
DX: H60.501 Unspecified acute noninfective otitis externa, right ear (principal); I25.2 Old myocardial infarction; J45.909 Unspecified asthma, uncomplicated; Z86.16 Personal history of COVID-19; Z87.891 Personal history of nicotine dependence; Z88.8 Allergy status to other drugs, medicaments and biological substances; Z79.82 Long term (current) use of aspirin; Z79.899 Other long term (current) drug therapy
CPT/HCPCS: 99282; 99283; A9270-GY

== ENCOUNTER 2022-08-25 12:29 | Emergency (ER) | payer MEDICAID ==
[2022-08-25 12:46] VITALS: PULSE 117
[2022-08-25] MEDS ORDERED: Sodium Chloride 0.9% 1,000 ML IV SCH (13:15)
[2022-08-25 13:40] VITALS: BP 162/102
[2022-08-25 13:41] LABS: ANION GAP 18.8 mmol/L (5-15)
[2022-08-25 14:40] LABS: BARBITURATE SCREEN,URINE NEGATIVE (NEGATIVE); BENZODIAZEPINES SCREEN,URINE NEGATIVE (NEGATIVE); TCA SCREEN,URINE NEGATIVE (NEGATIVE); THC SCREEN,URINE 50 NG/ML POSITIVE (NEGATIVE)
== END 2022-08-25 14:50 | disposition home or self-care (01) ==
LOC: KA.ED 12:29
DX: J40 Bronchitis, not specified as acute or chronic (principal); F12.10 Cannabis abuse, uncomplicated; D72.0 Genetic anomalies of leukocytes; D72.829 Elevated white blood cell count, unspecified; Z91.048 Other nonmedicinal substance allergy status; Z88.5 Allergy status to narcotic agent; Z79.82 Long term (current) use of aspirin; Z86.16 Personal history of COVID-19
CPT/HCPCS: 36415; 71046; 80048; 80305-QW; 81001; 84484; 85025; 93010; 96360; 99284; 99285-25; J7030

== ENCOUNTER 2023-09-08 08:36 | Emergency (ER) | payer MEDICAID ==
[2023-09-08] MEDS: Acetaminophen 500 MG Tab PO ONE (08:49)
[2023-09-08 08:58] VITALS: BP 156/87; PULSE 82
[2023-09-08] MEDS: Acetaminophen 500 MG Tab ONE (09:03)
== END 2023-09-08 09:35 | disposition home or self-care (01) ==
LOC: KA.ED 08:36
DX: S93.401A Sprain of unspecified ligament of right ankle, initial encounter (principal); M19.071 Primary osteoarthritis, right ankle and foot; X50.1XXA Overexertion from prolonged static or awkward postures, initial encounter; Y93.89 Activity, other specified; Z88.8 Allergy status to other drugs, medicaments and biological substances; Z88.6 Allergy status to analgesic agent; Z86.73 Personal history of transient ischemic attack (TIA), and cerebral infarction without residual deficits
CPT/HCPCS: 73610-RT; 99283; A9270-GY